=== PATIENT | female | born 1945 | race African-American/Black ===

== ENCOUNTER 2016-09-25 11:24 | Emergency (ER) | payer MEDICARE, OTHER ==
[2016-09-25 11:29] VITALS: BP 137/83
--- NOTE | 2016-09-25 11:40 | ER Document Report ---
ED Medical Screen (RME) - General Stated Complaint: LEFT KNEE PAIN Mode of Arrival: Ambulatory Information source: Patient Notes: Patient complains of pain to left knee for the past 2 months. Patient states she was walking and felt a pop in her knee. Patient complains of increased pain since then. I have greeted and performed a rapid initial assessment of this patient. A comprehensive ED assessment and evaluation of the patient, analysis of test results and completion of the medical decision making process will be conducted by additional ED providers. TRAVEL OUTSIDE OF THE [place] IN LAST 30 DAYS: No - Related Data Allergies/Adverse Reactions: Sulfa (Sulfonamide Antibiotics) Allergy (Verified 09/25/16 11:38) Past Medical History - Past Medical History Cardiac Medical History: Reports: Hx Hypertension Pulmonary Medical History: Reports: Hx Asthma, Hx Bronchitis, Hx Pneumonia GI Medical History: Reports: Hx Diverticulitis, Hx Gastroesophageal Reflux Disease Past Surgical History: Reports: Hx Breast Surgery - tumor removed, Hx Cholecystectomy, Hx Hysterectomy, Hx Orthopedic Surgery - left wrist, right shoulder, Hx Tonsillectomy - Immunizations Hx Diphtheria, Pertussis, Tetanus Vaccination: Yes Physical Exam - Vital signs Vitals: Temp Pulse Resp BP Pulse Ox 98.0 F 81 18 137/83 H 96 09/25/16 11:28 09/25/16 11:28 09/25/16 11:28 09/25/16 11:28 09/25/16 11:28 - Extremities General lower extremity: Tender - Left knee Course - Vital Signs Vital signs: Temp Pulse Resp BP Pulse Ox 98.0 F 81 18 137/83 H 96 09/25/16 11:28 09/25/16 11:28 09/25/16 11:28 09/25/16 11:28 09/25/16 11:28
--- NOTE | 2016-09-25 12:28 | ER Document Report ---
HPI - HPI Patient complains to provider of: knee pain Onset: This morning Quality of pain: Achy Severity: Moderate Pain Level: 3 Context: Patient presents to the emergency department with complaints of left knee pain. She reports she's had knee pain for a while. Her doctor, Dr. Garcia sent her for an ultrasound last week. She is still waiting on the results. Patient reports this morning she came out of the bathroom stepped felt a pop and then a sharp burn. Since that time it's been burning. She has not taken anything for pain. 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 Patient walking with a limp. Denies prior past medical history of trauma to the knee. No other complaints such as fever vomiting diarrhea. Associated Symptoms: None Exacerbated by: Movement, Walking Relieved by: Denies Similar symptoms previously: Yes Recently seen / treated by doctor: Yes - CONSTITUTIONAL Constitutional: DENIES: Fever, Chills - REPRODUCTIVE Reproductive: DENIES: : - DERM Skin Color: Normal Skin Problems: None - NURSING COMMENTS Comment: Pt presents to the ED with left knee pain. Pt claims she was walking this morning and "felt a pop" and wanted to seek medical attention. Pt denies any trip, slip or any other previous injury. Pt claims a history of "burning" to the left knee and has a scheduled doppler. Pt is AOx4 and able to speak in full sentences. Pt is able to bear weight but with pain. Pt denies any SOB or difficulty breathing at this time. Past Medical History - General Information source: Patient Last Menstrual Period: hysterectomy - Social History Smoking Status: Never Smoker Cigarette use (# per day): No Chew tobacco use (# tins/day): No Frequency of alcohol use: Social Drug Abuse: None Family History: Arthritis, CAD, DM, Hyperlipidemia, Hypertension Patient has suicidal ideation: No Patient has homicidal ideation: No - Past Medical History Cardiac Medical History: Reports: Hx Hypertension Pulmonary Medical History: Reports: Hx Asthma, Hx Bronchitis, Hx Pneumonia Renal/ Medical History: Denies: Hx Peritoneal Dialysis GI Medical History: Reports: Hx Diverticulitis, Hx Gastroesophageal Reflux Disease Past Surgical History: Reports: Hx Breast Surgery - tumor removed, Hx Cholecystectomy, Hx Hysterectomy, Hx Orthopedic Surgery - left wrist, right shoulder, Hx Tonsillectomy - Immunizations Hx Diphtheria, Pertussis, Tetanus Vaccination: Yes Vertical Provider Document - CONSTITUTIONAL Agree With Documented VS: Yes Exam Limitations: No Limitations General Appearance: WD/WN - INFECTION CONTROL TRAVEL OUTSIDE OF THE [place] IN LAST 30 DAYS: No - HEENT HEENT: Atraumatic, Normocephalic - NECK Neck: Normal Inspection, Supple - RESPIRATORY Respiratory: Breath Sounds Normal, No Respiratory Distress O2 Sat by Pulse Oximetry: 96 - CARDIOVASCULAR Cardiovascular: Regular Rate - MUSCULOSKELETAL/EXTREMETIES Musculoskeletal/Extremeties: MAEW, FROM, Tender - Left knee anterior tender to palpation no obvious deformity no swelling no erythema noted around patient walks with a limp. - NEURO Level of Consciousness: Awake, Alert, Appropriate Motor/Sensory: No Motor Deficit - DERM Integumentary: Warm, Dry Adult Front & Back Diagram: 1 - Complaints of pain Course - Re-evaluation Re-evalutation: 09/25/16 12:48 Patient was walking with a slight limp. Do not suspect fracture because patient did not fall on her knee. She has been evaluated for this pain in the past. Patient will be provided with a copy of the x-ray report, norco for pain for which patient says she's had before and instructed to follow up with Dr. Lynne and orthopedics. - Vital Signs Vital signs: Temp Pulse Resp BP Pulse Ox 98.0 F 81 18 137/83 H 96 09/25/16 11:28 09/25/16 11:28 09/25/16 11:28 09/25/16 11:28 09/25/16 11:28 - Diagnostic Test Radiology reviewed: Image reviewed, Reports reviewed - IMPRESSION: Suspect an accessory ossification center along the upper outer quadrant of the patella. Acute fracture is considered possible but unlikely Discharge - Discharge Clinical Impression: Elevated blood pressure reading Left knee pain Qualifiers: Chronicity: acute Qualified Code(s): M25.562 - Pain in left knee Condition: Stable Disposition: HOME, SELF-CARE Instructions: Ice & Elevation ([facility]), Oral Narcotic Medication ([facility]) Additional Instructions: *You have been evaluated for knee pain *Rest/Ice/Elevate *Follow up with Dr Lynne as scheduled and for referral to orthopedics *Take medication as prescribed *Return to ED for worsening condition, changes, needs Prescriptions: Hydrocodone/Acetaminophen [Wallagrass 5-325 Tablet] 1 each PO QID #15 tablet Forms: Elevated Blood Pressure
[2016-09-25] MEDS ORDERED: IBUPROFEN 800 MG TABLET PO ONE (12:43)
== END 2016-09-25 13:23 | disposition home or self-care (01) ==
LOC: ER 11:24
DX: M25.562 Pain in left knee (principal); I10 Essential (primary) hypertension; J45.909 Unspecified asthma, uncomplicated
CPT/HCPCS: 99283; 73562; A9270

== ENCOUNTER 2017-04-16 14:52 | Emergency (ER) | payer MEDICARE, OTHER ==
[2017-04-16 15:05] VITALS: BP 148/80
[2017-04-16 17:27] LABS: APPEARANCE,URINE CLEAR; BILIRUBIN,URINE NEGATIVE (NEGATIVE); GLUCOSE, URINE NEGATIVE (NEGATIVE); KETONES,URINE NEGATIVE (NEGATIVE); LEUKOCYTE ESTERASE,URINE NEGATIVE (NEGATIVE); NITRITE,URINE NEGATIVE (NEGATIVE); PROTEIN,URINE NEGATIVE (NEGATIVE); URINE SPECIFIC GRAVITY 1.008; UROBILINOGEN,URINE NEGATIVE mg/dL (<2.0)
[2017-04-16 17:28] LABS: ABSOLUTE EOSINOPHILS # (AUTO) 0.3 10^3/uL (0.0-0.6); ABSOLUTE LYMPHOCYTES (AUTO) 1.8 10^3/uL (0.5-4.7); ABSOLUTE MONOCYTES (AUTO) 0.4 10^3/uL (0.1-1.4); ABSOLUTE NEUT (AUTO) 3.3 10^3/uL (1.7-8.2); BASOPHILS % (AUTO) 0.4 % (0-2); EOSINOPHILS % (AUTO) 5.8 % (0-6); HEMATOCRIT 37.6 % (36.0-47.0); HEMOGLOBIN 11.9 g/dL (12.0-15.5); HGB HCT DIFFERENCE -1.9; LYMPHOCYTES % (AUTO) 30.9 % (13-45); MEAN CORPUSCULAR HEMOGLOBIN 20.8 pg (27.0-33.4); MEAN CORPUSCULAR HGB CONC 31.5 g/dL (32.0-36.0); MEAN CORPUSCULAR VOLUME 66 fl (80-97); MONOCYTES % (AUTO) 7.1 % (3-13); RED BLOOD COUNT 5.69 10^6/uL (3.72-5.28); RED CELL DISTRIBUTION WIDTH 15.8 % (11.5-14.0); SEGMENTED NEUTROPHILS % (AUTO) 55.8 % (42-78); WHITE BLOOD COUNT 5.9 10^3/uL (4.0-10.5)
[2017-04-16 17:46] LABS: ALANINE AMINOTRANSFERASE 41 U/L (9-52); ALKALINE PHOSPHATASE 114 U/L (38-126); ANION GAP 9 (5-19); ASPARTATE AMINO TRANSFERASE 32 U/L (14-36); BILIRUBIN,DIRECT 0.3 mg/dL (0.0-0.4); BILIRUBIN,TOTAL 0.6 mg/dL (0.2-1.3); BLOOD UREA NITROGEN 19 mg/dL (7-20); CALCIUM 10.2 mg/dL (8.4-10.2); CARBON DIOXIDE 33 mmol/L (22-30); CHLORIDE 98 mmol/L (98-107); CREATININE RESULT 0.91 mg/dL (0.52-1.25); GLUCOSE 101 mg/dL (75-110); POTASSIUM 3.4 mmol/L (3.6-5.0); SODIUM 140.2 mmol/L (137-145); TOTAL PROTEIN 6.7 g/dL (6.3-8.2)
[2017-04-16] MEDS ORDERED: KETOROLAC TROMETHAMINE INJ/PF 30 MG/1 ML SDV IM ONE (18:44)
[2017-04-16] MEDS ORDERED: CYCLOBENZAPRINE HCL 10 MG TABLET PO ONE (18:44)
--- NOTE | 2017-04-16 18:44 | ER Document Report ---
ED Neck/Back Problem - General Chief Complaint: Flank Pain Stated Complaint: BACK PAIN Time Seen by Provider: 04/16/17 17:05 TRAVEL OUTSIDE OF THE [place] IN LAST 30 DAYS: No - HPI Patient complains to provider of: Lower back Onset: Just prior to arrival Where: Home Onset: Sudden Timing: Constant Quality of pain: Achy Severity: Moderate Context: Bending. denies: Fainted, Fall/near-fall, Turning Recent injury: Possibly Associated symptoms: None Exacerbated by: Movement of trunk Relieved by: Supine, Remaining still Similar symptoms previously: Yes - h/o acute back pain responded well to muscle relaxers. Recently seen / treated by doctor: No - Related Data Allergies/Adverse Reactions: Sulfa (Sulfonamide Antibiotics) Allergy (Verified 04/16/17 15:05) Past Medical History - Social History Smoking Status: Unknown if Ever Smoked Family History: Arthritis, CAD, DM, Hyperlipidemia, Hypertension - Past Medical History Cardiac Medical History: Reports: Hx Hypertension Pulmonary Medical History: Reports: Hx Asthma, Hx Bronchitis, Hx Pneumonia Renal/ Medical History: Denies: Hx Peritoneal Dialysis GI Medical History: Reports: Hx Diverticulitis, Hx Gastroesophageal Reflux Disease Past Surgical History: Reports: Hx Breast Surgery - tumor removed, Hx Cholecystectomy, Hx Hysterectomy, Hx Orthopedic Surgery - left wrist, right shoulder, Hx Tonsillectomy - Immunizations Hx Diphtheria, Pertussis, Tetanus Vaccination: Yes Review of Systems - Review of Systems Constitutional: No symptoms reported Musculoskeletal: See HPI Neurological/Psychological: See HPI -: Yes All other systems reviewed and negative Physical Exam - Vital signs Vitals: Temp Pulse Resp BP Pulse Ox 98.1 F 81 16 148/80 H 97 04/16/17 15:02 04/16/17 15:02 04/16/17 15:02 04/16/17 15:02 04/16/17 15:02 - Notes Notes: PHYSICAL EXAM GENERAL: Alert, interacts well. HEAD: Normocephalic, atraumatic. EYES: Pupils equal, round, and reactive to light. Extraocular movements intact. ENT: Oral mucosa moist, tongue midline. NECK: Full range of motion. Supple. Trachea midline. LUNGS: Clear to auscultation bilaterally, no wheezes, rales, or rhonchi. No respiratory distress. HEART: Regular rate and rhythm. No murmurs, gallops, or rubs. ABDOMEN: Soft, nondistended, nontender. No guarding, rebound, or rigidity.. Bowel sounds present in all 4 quadrants. EXTREMITIES: Moves all 4 extremities spontaneously. No edema, radial and dorsalis pedis pulses 2/4 bilaterally. No cyanosis. Back: Superficial paralumbar muscular tenderness in the right lumbar spine negative for CVA tenderness bilaterally. No evidence of spinous process tenderness, deformities or step-offs NEUROLOGICAL: Alert and oriented x4. Normal speech. PSYCH: Normal affect, normal mood. SKIN: Warm, dry, normal turgor. No rashes or lesions noted. Course - Re-evaluation Re-evalutation: 04/16/17 18:43 The patient presents with low back pain without signs of spinal cord compression , cauda equina syndrome, infection, aneurysm, or other serious etiology. The patient is neurologically intact. Given the extremely low risk of these diagnoses further testing and evaluation for these possibilities does not appear to be indicated at this time. The patient has been instructed to return if the symptoms worsen or change in any way. - Vital Signs Vital signs: Temp Pulse Resp BP Pulse Ox 98.1 F 81 16 148/80 H 97 04/16/17 15:02 04/16/17 15:02 04/16/17 15:02 04/16/17 15:02 04/16/17 15:02 - Laboratory Result Diagrams: 04/16/17 17:16 04/16/17 17:16 Laboratory results interpreted by me: 04/16/17 04/16/17 17:16 17:16 RBC 5.69 H Hgb 11.9 L MCV 66 L MCH 20.8 L MCHC 31.5 L RDW 15.8 H Potassium 3.4 L Carbon Dioxide 33 H Discharge - Discharge Clinical Impression: Low back pain Qualifiers: Chronicity: acute Back pain laterality: right Sciatica presence: without sciatica Qualified Code(s): M54.5 - Low back pain Condition: Good Disposition: HOME, SELF-CARE Additional Instructions: LOW BACK PAIN: Three out of every four people will have an episode of disabling back pain during their lifetime. Most commonly the pain is due to straining of the muscles and ligaments in the low back. Usual treatment includes: (1) Rest on a firm surface. Avoid lying on your stomach. (2) Ice pack the painful area. After a few days, gentle heat may be used intermittently to relax the area, or ice packs can be continued. (3) Medication may be needed -- muscle relaxers and antiinflammatory medicines are commonly used. (4) As the back improves, exercises are prescribed to strengthen the back and abdominal muscles. Your doctor will advise you on the proper care for your back at each stage in your recovery. You may be better in a few days -- or healing may take several weeks. If new symptoms of a "herniated disc" (radiation of pain, numbness, or tingling down the back of the leg or weakness in the leg) occur, you should be re-examined. Further testing may be necessary. PAIN MEDICATION INJECTION: You have received an injection of a pain medication. You should experience significant pain relief within 45 minutes. If this injection was a narcotic -- it will impair your judgement, slow your reaction time and make you sleepy (as well as relieve your pain). Narcotics also can cause nausea. You should not drive, work with machinery, or perform any task requiring mental alertness until all effects of the medication are gone -- six to eight hours. Do not take any alcohol, or sedatives, and do not take any other medication without checking with your physician. MUSCLE RELAXERS: Muscle relaxing medications are usually prescribed for acute muscle spasm or injury to the neck and back. They are often combined with antiinflammatory pain medication for increased relief. You may stop the muscle relaxer when the pain and stiffness have improved. Start the medication again if spasms recur. Muscle relaxers may cause drowsiness, especially with the first dose. Do not operate machinery or drive while under the effects of the medication. Most muscle relaxers last up to 24 hours. Do not combine the medication with alcohol. ICE PACKS: Apply ice packs frequently against the painful area. Many different schedules are recommended, such as "20 minutes on, 20 minutes off" or "one hour ice, two hours rest." If you need to work, you may need to go longer between ice treatments. You should plan to have the area ice packed AT LEAST one fourth of the time. The ice should be applied over the wrap, tape, or splint, or over a layer of cloth -- not directly against the skin. Some ice bags have a built-in cloth and can be put directly on the skin. WARM PACKS: After approximately two days, apply gentle heat (such as a heating pad or hot water bottle) for about 20 to 30 minutes about every two hours -- at least four times daily. Warmth and elevation will help you make a more rapid recovery , and will ease the pain considerably. Do not use HOT heat, and never apply heat for longer than 30 minutes. The continuous heat can invisibly damage skin and muscles -- even when no burn is seen on the surface. Damaged muscles can make you MORE sore. FOLLOW-UP CARE: If you have been referred to a physician for follow-up care, call the physician s office for an appointment as you were instructed or within the next two days. If you experience worsening or a significant change in your symptoms, notify the physician immediately or return to the Emergency Department at any time for re-evaluation. Prescriptions: Cyclobenzaprine HCl [Flexeril 5 mg Tablet] 5 mg PO BID #14 tablet Ibuprofen [Motrin 800 mg Tablet] 800 mg PO Q8H PRN #30 tab PRN Reason: Referrals: MAICOL RYAN MD [NO LOCAL MD] - Follow up in 1 week
== END 2017-04-16 19:25 | disposition home or self-care (01) ==
LOC: ER 14:52
DX: R10.9 Unspecified abdominal pain (principal); M54.5 Low back pain; I10 Essential (primary) hypertension; Z88.2 Allergy status to sulfonamides; Z90.49 Acquired absence of other specified parts of digestive tract; Z90.710 Acquired absence of both cervix and uterus
CPT/HCPCS: 99284; 96372; 36415; 85025; 80053; 81001; A9270; J1885

== ENCOUNTER 2017-09-09 13:07 | Emergency (ER) | payer MEDICARE, OTHER ==
[2017-09-09 13:21] VITALS: BP 143/71
--- NOTE | 2017-09-09 14:44 | ER Document Report ---
HPI - HPI Patient complains to provider of: right jaw swelling Onset: This afternoon - 12:00 while eating Onset/Duration: Sudden Pain Level: 4 Context: 72 yo female developed right jaw swelling while eating at 12:00, it has now subsided. No tooth pain. No fever. Associated Symptoms: None Exacerbated by: Denies Relieved by: Denies Similar symptoms previously: No Recently seen / treated by doctor: No - ROS ROS below otherwise negative: Yes Systems Reviewed and Negative: Yes All other systems reviewed and negative - REPRODUCTIVE Reproductive: DENIES: : Past Medical History - General Information source: Patient - Social History Smoking Status: Never Smoker Chew tobacco use (# tins/day): No Frequency of alcohol use: Occasional Drug Abuse: None Lives with: Family Family History: Arthritis, CAD, DM, Hyperlipidemia, Hypertension Patient has suicidal ideation: No Patient has homicidal ideation: No - Past Medical History Cardiac Medical History: Reports: Hx Hypertension Pulmonary Medical History: Reports: Hx Asthma, Hx Bronchitis, Hx Pneumonia Renal/ Medical History: Denies: Hx Peritoneal Dialysis GI Medical History: Reports: Hx Diverticulitis, Hx Gastroesophageal Reflux Disease Past Surgical History: Reports: Hx Breast Surgery - tumor removed, Hx Cholecystectomy, Hx Hysterectomy, Hx Orthopedic Surgery - left wrist, right shoulder, Hx Tonsillectomy - Immunizations Hx Diphtheria, Pertussis, Tetanus Vaccination: Yes Vertical Provider Document - CONSTITUTIONAL Agree With Documented VS: Yes Exam Limitations: No Limitations General Appearance: No Apparent Distress - INFECTION CONTROL TRAVEL OUTSIDE OF THE [place] IN LAST 30 DAYS: No - HEENT HEENT: Normal ENT Exam Notes: location that she had swelling was the right parotid gland which is normal at this time per the pt, she looked in the mirror. Gingiva and buccal mucosa normal. - NECK Neck: Supple. negative: Lymphadenopathy-Left, Lymphadenopathy-Right - RESPIRATORY O2 Sat by Pulse Oximetry: 96 - NEURO Level of Consciousness: Awake, Alert, Appropriate - DERM Integumentary: Warm, Dry Course - Vital Signs Vital signs: Temp Pulse Resp BP Pulse Ox 98.6 F 76 16 143/71 H 96 09/09/17 13:19 09/09/17 13:19 09/09/17 13:19 09/09/17 13:19 09/09/17 13:19 Discharge - Discharge Clinical Impression: Transient swelling of the right parotid Condition: Good Disposition: HOME, SELF-CARE Instructions: Acute Parotid Gland Swelling ([facility]), Warm Packs ([facility]) Additional Instructions: warm compess and gentle massage if recurs sucking on lemon drop with help promote saliva gland drainage see dr. ryan for follow up to er if it swells, gets, hot, painful Referrals: MAICOL RYAN MD [Primary Care Provider] - Follow up as needed
== END 2017-09-09 14:47 | disposition home or self-care (01) ==
LOC: ER 13:07
DX: R59.0 Localized enlarged lymph nodes (principal); I10 Essential (primary) hypertension; Z90.49 Acquired absence of other specified parts of digestive tract; Z90.710 Acquired absence of both cervix and uterus
CPT/HCPCS: 99283

== ENCOUNTER 2017-11-10 16:19 | Emergency (ER) | payer MEDICARE, OTHER ==
--- NOTE | 2017-11-10 16:53 | ER Document Report ---
ED Extremity Problem, Lower - General Chief Complaint: Knee Pain Stated Complaint: KNEE PAIN/SWELLING Time Seen by Provider: 11/10/17 16:52 Mode of Arrival: Ambulatory Information source: Patient Notes: 72 yo non diabetic female noticed a red area that itched on medial right knee on saturday, the red area has gotten larger and now hurts. No fever or chills. TRAVEL OUTSIDE OF THE [place] IN LAST 30 DAYS: No - Related Data Allergies/Adverse Reactions: Sulfa (Sulfonamide Antibiotics) Allergy (Verified 11/10/17 16:24) Past Medical History - General Information source: Patient - Social History Smoking Status: Never Smoker Frequency of alcohol use: None Drug Abuse: None Lives with: Family Family History: Arthritis, CAD, DM, Hyperlipidemia, Hypertension - Past Medical History Cardiac Medical History: Reports: Hx Hypertension Pulmonary Medical History: Reports: Hx Asthma, Hx Bronchitis, Hx Pneumonia Renal/ Medical History: Denies: Hx Peritoneal Dialysis GI Medical History: Reports: Hx Diverticulitis, Hx Gastroesophageal Reflux Disease Past Surgical History: Reports: Hx Breast Surgery - tumor removed, Hx Cholecystectomy, Hx Hysterectomy, Hx Orthopedic Surgery - left wrist, right shoulder, Hx Tonsillectomy - Immunizations Hx Diphtheria, Pertussis, Tetanus Vaccination: Yes Review of Systems - Review of Systems Constitutional: No symptoms reported EENT: No symptoms reported Cardiovascular: No symptoms reported Respiratory: No symptoms reported Gastrointestinal: No symptoms reported Genitourinary: No symptoms reported Female Genitourinary: No symptoms reported Musculoskeletal: See HPI Skin: No symptoms reported Hematologic/Lymphatic: No symptoms reported Neurological/Psychological: No symptoms reported Physical Exam - Vital signs Vitals: Temp Pulse Resp BP Pulse Ox 98.3 F 84 16 132/73 H 95 11/10/17 16:33 11/10/17 16:33 11/10/17 16:33 11/10/17 16:33 11/10/17 16:33 Interpretation: Normal - General General appearance: Appears well, Alert - HEENT Head: Normocephalic, Atraumatic Eyes: Normal Pupils: PERRL Pharynx: Normal Neck: Supple - Respiratory Respiratory status: No respiratory distress Chest status: Nontender Breath sounds: Normal Chest palpation: Normal - Cardiovascular Rhythm: Regular Heart sounds: Normal auscultation Murmur: No - Back Back: Normal, Nontender - Extremities General upper extremity: Normal inspection, Nontender, Normal color, Normal ROM , Normal temperature General lower extremity: Normal inspection, Nontender, Normal color, Normal ROM , Normal temperature, Normal weight bearing. No: Harpreet's sign Knee: Tender - mild medial right knee, distal medial thigh 2 cm , no abscess, surrounding pink non tender, non circumferential 20 cm, area marked with skin marker.. No: Joint effusion - Neurological Neuro grossly intact: Yes Cognition: Normal Orientation: AAOx4 [place] Coma Scale Eye Opening: Spontaneous Dez Coma Scale Verbal: Oriented Dez Coma Scale Motor: Obeys Commands [place] Coma Scale Total: 15 Speech: Normal Motor strength normal: LUE, RUE, LLE, RLE Sensory: Normal - Psychological Associated symptoms: Normal affect, Normal mood - Skin Skin Temperature: Warm Skin Moisture: Dry Skin Color: Normal Notes: se above Course - Vital Signs Vital signs: Temp Pulse Resp BP Pulse Ox 98.1 F 80 18 130/72 H 96 11/10/17 18:07 11/10/17 18:07 11/10/17 18:07 11/10/17 18:07 11/10/17 18:07 Discharge - Discharge Clinical Impression: right mid medial leg cellulitis Condition: Good Disposition: HOME, SELF-CARE Instructions: Cellulitis ([facility]), Clindamycin ([facility]), Elevation & Warmth ([facility]) Additional Instructions: recheck the leg tomorrow if the red area has gone outside the purple marking pen Elevate the leg and use heat Antibiotics 3 times a day If the redness is decreasing inside the purple marking pen then you can be rechecked on Saturday. Prescriptions: Clindamycin HCl [Cleocin 150 mg Capsule] 300 mg PO TID #42 capsule Referrals: MAICOL RYAN MD [Primary Care Provider] - Follow up tomorrow
[2017-11-10] MEDS ORDERED: ONDANSETRON 4 MG TAB.RAPDIS PO ONE (17:53)
[2017-11-10] MEDS ORDERED: CLINDAMYCIN HCL 150 MG CAPSULE PO ONE (17:53)
[2017-11-10 18:07] VITALS: BP 130/72
== END 2017-11-10 18:07 | disposition home or self-care (01) ==
LOC: ER 16:19
DX: L03.115 Cellulitis of right lower limb (principal); I10 Essential (primary) hypertension; J45.909 Unspecified asthma, uncomplicated; Z88.2 Allergy status to sulfonamides
CPT/HCPCS: 99283; A9270 ×2; S0119

== ENCOUNTER 2018-03-27 06:23 | Day surgery (SDC) | payer MEDICARE, OTHER ==
[2018-03-27] MEDS ORDERED: TETRACAINE HCL 0.5% OPH SOLN 2 ML ONE (06:38)
[2018-03-27] MEDS ORDERED: KETOROLAC TROMETHAMINE 0.45% 4 DROP/0.4 ML DROPERETTE ONE (06:38)
[2018-03-27] MEDS ORDERED: MIDAZOLAM 2 MG/2 ML INJ ONE (06:41)
[2018-03-27] MEDS: BESIFLOXACIN HCL 0.6% OPH SUSP 5 ML BOTTLE OS PRN ×3 (06:50→07:52)
[2018-03-27] MEDS: CYCLOPENTOLATE 0.2%/PHENYLEPHRINE 1% OPH SOLN 2 ML OS PRN ×3 (06:50→07:10)
[2018-03-27] MEDS: TROPICAMIDE 1% OPH SOLN 3 ML OS PRN ×3 (06:50→07:10)
[2018-03-27] MEDS: TETRACAINE HCL 0.5% OPH SOLN 2 ML OS PRN ×3 (06:51→07:31)
[2018-03-27] MEDS ORDERED: EPINEPHRINE INJ/PF 1 MG/1 ML AMPULE ONE (07:09)
[2018-03-27] MEDS ORDERED: CHONDR SU A NA/HYALUR INTRAOC KIT (SURGICARE) ONE (07:10)
[2018-03-27] MEDS ORDERED: LIDOCAINE 1% INJ-PF (10 MG/ML) 30 ML SDV ONE (07:10)
[2018-03-27] MEDS ORDERED: KETOROLAC TROMETHAMINE 0.45% 4 DROP/0.4 ML DROPERETTE OS PRN (07:20)
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
--- NOTE | 2018-03-27 19:46 | [facility] OPERATIVE REPORT E ---
[facility] Operative Report NAME: LINDSEY WILLIS AGE: 72Y DATE OF SURGERY: 03/27/2018 ROOM: PREOPERATIVE DIAGNOSIS: CATARACT, LEFT EYE. POSTOPERATIVE DIAGNOSIS: CATARACT, LEFT EYE. OPERATION: Cataract extraction with insertion of an IOL of the left eye. SURGEON: BRITNEY MÁRQUEZ M.D. ANESTHESIA: Topical. PROCEDURE: After obtaining appropriate consent, the patient's left eye was prepped and draped in sterile fashion as well as the surgeon in a sterile manner and cataract surgery was started. First a paracentesis blade was used to make a side-port incision. Viscoelastic was used to inflate the anterior chamber. Next a 2.4 mm incision was made with a 2.4 mm blade, clear corneal temporally. A continuous capsulorrhexis was made using a cystotome and Utrata forceps. Following this hydrodissection was carried out to make the lens fully loose and mobile and it was rotated 90 degrees. Following this, a lvxbzx-nkh-lxselga technique was used to phacoemulsify the lens with a CDE of 8.97. The remaining cortex was removed with irrigation/aspiration. Provisc was instilled into the capsular bag to inflate the bag. A SN60WF, 21.5 diopter lens was placed. The remaining viscoelastic material was removed with irrigation/aspiration. Following this, the incision was found to be watertight. Besivance was instilled into the eye and a protective shield was placed over the eye. The patient returned to the postoperative recovery in stable condition. DICTATING PHYSICIAN: BRITNEY MÁRQUEZ M.D. [id number] PHY#: [id number] 1922 ID: [id number] JOB#: [id number] ACCT: [id number] cc:BRITNEY MÁRQUEZ M.D. >
== END 2018-03-27 08:29 | disposition home or self-care (01) ==
LOC: SC 06:23
PROVIDERS: ATTEND Internal Medicine
DX: H25.12 Age-related nuclear cataract, left eye (principal); I10 Essential (primary) hypertension; E07.9 Disorder of thyroid, unspecified; J45.909 Unspecified asthma, uncomplicated; D64.9 Anemia, unspecified
CPT/HCPCS: 66984; V2632; J2250; J3490 ×2; A9270; J0171; 142

== ENCOUNTER 2018-04-29 06:46 | Day surgery (SDC) | payer MEDICARE, OTHER ==
[~2018-04-29 06:46] MED LIST: KETOROLAC TROMETHAMINE 0.45% 4 DROP/0.4 ML DROPERETTE OD PRN
[2018-04-29] MEDS: BESIFLOXACIN HCL 0.6% OPH SUSP 5 ML BOTTLE OD PRN ×3 (07:04→08:00)
[2018-04-29] MEDS: TETRACAINE HCL 0.5% OPH SOLN 4 ML OD PRN ×3 (07:04→07:34)
[2018-04-29] MEDS: TROPICAMIDE 1% OPH SOLN 3 ML OD PRN ×3 (07:04→07:16)
[2018-04-29] MEDS: CYCLOPENTOLATE 0.2%/PHENYLEPHRINE 1% OPH SOLN 2 ML OD PRN ×3 (07:04→07:16)
[2018-04-29] MEDS ORDERED: CHONDR SU A NA/HYALUR INTRAOC KIT (SURGICARE) ONE (07:11)
[2018-04-29] MEDS ORDERED: EPINEPHRINE INJ/PF 1 MG/1 ML AMPULE ONE (07:11)
[2018-04-29] MEDS ORDERED: LIDOCAINE 1% INJ-PF (10 MG/ML) 30 ML SDV ONE (07:11)
[2018-04-29] MEDS ORDERED: MIDAZOLAM 2 MG/2 ML INJ ONE (07:28)
[2018-04-29] MEDS ORDERED: FENTANYL CITRATE INJ/PF 100 MCG/2 ML AMPUL ONE (07:28)
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
--- NOTE | 2018-04-29 13:26 | [facility] OPERATIVE REPORT E ---
[facility] Operative Report NAME: LINDSEY WILLIS AGE: 73Y DATE OF SURGERY: 04/29/2018 ROOM: PREOPERATIVE DIAGNOSIS: CATARACT, RIGHT EYE. POSTOPERATIVE DIAGNOSIS: CATARACT, RIGHT EYE. OPERATION: Cataract extraction with insertion of an IOL of the right eye. SURGEON: BRITNEY MÁRQUEZ M.D. ANESTHESIA: Topical. PROCEDURE: After obtaining appropriate consent, the patient's right eye was prepped and draped in sterile fashion as well as the surgeon in a sterile manner and cataract surgery was started. First a paracentesis blade was used to make a side-port incision. Viscoelastic was used to inflate the anterior chamber. Next a 2.4 mm incision was made with a 2.4 mm blade, clear corneal temporally. A continuous capsulorrhexis was made using a cystotome and Utrata forceps. Following this hydrodissection was carried out to make the lens fully loose and mobile and it was rotated 90 degrees. Following this, a inbaun-sto-uorfacd technique was used to phacoemulsify the lens with a CDE of 5.63. The remaining cortex was removed with irrigation/aspiration. Provisc was instilled into the capsular bag to inflate the bag. A SN60WF, 21.0 diopter lens was placed. The remaining viscoelastic material was removed with irrigation/aspiration. Following this, the incision was found to be watertight. Besivance was instilled into the eye and a protective shield was placed over the eye. The patient returned to the postoperative recovery in stable condition. DICTATING PHYSICIAN: BRITNEY MÁRQUEZ M.D. [id number] PHY#: [id number] ID: [id number] JOB#: [id number] ACCT: [id number] cc:BRITNEY MÁRQUEZ M.D. >
== END 2018-04-29 08:33 | disposition home or self-care (01) ==
LOC: SC 06:46
PROVIDERS: ATTEND Internal Medicine
DX: H25.13 Age-related nuclear cataract, bilateral (principal); H04.123 Dry eye syndrome of bilateral lacrimal glands; H43.813 Vitreous degeneration, bilateral; I10 Essential (primary) hypertension; J45.909 Unspecified asthma, uncomplicated; M19.90 Unspecified osteoarthritis, unspecified site; E03.9 Hypothyroidism, unspecified; K76.0 Fatty (change of) liver, not elsewhere classified; D69.49 Other primary thrombocytopenia; G47.30 Sleep apnea, unspecified; D64.9 Anemia, unspecified; K21.9 Gastro-esophageal reflux disease without esophagitis; Z79.899 Other long term (current) drug therapy; Z79.82 Long term (current) use of aspirin; Z79.51 Long term (current) use of inhaled steroids; Z79.1 Long term (current) use of non-steroidal anti-inflammatories (NSAID); Z88.2 Allergy status to sulfonamides
CPT/HCPCS: 66984; V2632; J2250; J3490 ×3; A9270; J0171; J3010; 142

== ENCOUNTER 2018-07-16 08:21 | Emergency (ER) | payer MEDICARE, OTHER ==
--- NOTE | 2018-07-16 09:39 | ER Document Report ---
ED Respiratory Problem - General Chief Complaint: Cough Stated Complaint: COUGH Time Seen by Provider: 07/16/18 09:07 Mode of Arrival: Ambulatory Information source: Patient Notes: 73-year-old female presented to ED for cough cold congestion for 5 days. She is got postnasal drip she states she went to the urgent care was given Tessalon Perles which have not helped at all. She is also taking Coricidin HB. Patient is alert and oriented respirations regular and unlabored speaking in full sentences walking with a even steady gait. Patient is afebrile at this time pulse ox of 96 pulse of 92 respirations 20 and blood pressure of 157/74. TRAVEL OUTSIDE OF THE [place] IN LAST 30 DAYS: No - HPI Patient complains to provider of: Cough Onset: Last week Duration: Continuous Initiating Event: Other Quality of pain: Achy Pain Level: 3 Context: Hx asthma. denies: Smoker Cough: Nonproductive Sputum amount: None Associated symptoms: Congestion, Cough, PND, Runny nose, Sinus pain/pressure Similar symptoms previously: Yes Recently seen / treated by doctor: Yes - Related Data Allergies/Adverse Reactions: Sulfa (Sulfonamide Antibiotics) Allergy (Intermediate, Verified 04/29/18 07:04) palpitations Past Medical History - General Information source: Patient - Social History Smoking Status: Never Smoker Cigarette use (# per day): No Chew tobacco use (# tins/day): No Smoking Education Provided: No Frequency of alcohol use: Social Drug Abuse: None Lives with: Family Family History: Arthritis, CAD, DM, Hyperlipidemia, Hypertension Patient has suicidal ideation: No Patient has homicidal ideation: No - Past Medical History Cardiac Medical History: Reports: Hx Hypertension Pulmonary Medical History: Reports: Hx Asthma, Hx Bronchitis, Hx Pneumonia EENT Medical History: Reports: None Neurological Medical History: Reports: None Endocrine Medical History: Reports: Hx Hypothyroidism Renal/ Medical History: Reports: None Malignancy Medical History: Reports: None GI Medical History: Reports: Hx Diverticulitis, Hx Gastroesophageal Reflux Disease, Hx Hiatal Hernia, Hx Colonoscopy, Hx Endoscopy Musculoskeletal Medical History: Reports Hx Arthritis, Reports Hx Musculoskeletal Deformity Skin Medical History: Reports None Psychiatric Medical History: Reports: None Traumatic Medical History: Reports: None Infectious Medical History: Reports: None Past Surgical History: Reports: Hx Adenoidectomy, Hx Breast Surgery - tumor removed, Hx Cholecystectomy, Hx Hysterectomy, Hx Orthopedic Surgery - right rotator cuff, Hx Tonsillectomy - Immunizations Immunizations up to date: Yes Hx Diphtheria, Pertussis, Tetanus Vaccination: Yes Review of Systems - Review of Systems Constitutional: Recent illness EENT: Nose congestion, Nose discharge, Sinus pressure, Sinus discharge Cardiovascular: No symptoms reported Respiratory: Cough Gastrointestinal: No symptoms reported Genitourinary: No symptoms reported Female Genitourinary: No symptoms reported Musculoskeletal: No symptoms reported Skin: No symptoms reported Hematologic/Lymphatic: No symptoms reported Neurological/Psychological: No symptoms reported -: Yes All other systems reviewed and negative Physical Exam - Vital signs Vitals: Temp Pulse Resp BP Pulse Ox 98.6 F 93 20 157/74 H 96 07/16/18 08:23 07/16/18 08:23 07/16/18 08:23 07/16/18 08:23 07/16/18 08:23 Interpretation: Normal - General General appearance: Appears well, Alert - HEENT Head: Normocephalic, Atraumatic Eyes: Normal Pupils: PERRL Ears: Normal External canal: Normal Tympanic membrane: Normal Sinus: Normal Nasal: Purulent discharge, Swelling Mouth/Lips: Normal Mucous membranes: Normal Pharynx: Erythema, Post nasal drainage. No: Exudate, Peritonsillar abscess, Tonsillar hypertrophy Neck: Normal - Respiratory Respiratory status: No respiratory distress Chest status: Nontender Breath sounds: Normal Chest palpation: Normal - Cardiovascular Rhythm: Regular Heart sounds: Normal auscultation Murmur: No - Abdominal Inspection: Normal Distension: No distension Bowel sounds: Normal Tenderness: Nontender Organomegaly: No organomegaly - Back Back: Normal, Nontender - Extremities General upper extremity: Normal inspection, Nontender, Normal color, Normal ROM , Normal temperature General lower extremity: Normal inspection, Nontender, Normal color, Normal ROM , Normal temperature, Normal weight bearing. No: Harpreet's sign - Neurological Neuro grossly intact: Yes Cognition: Normal Orientation: AAOx4 [place] Coma Scale Eye Opening: Spontaneous Dez Coma Scale Verbal: Oriented [place] Coma Scale Motor: Obeys Commands [place] Coma Scale Total: 15 Speech: Normal Motor strength normal: LUE, RUE, LLE, RLE Sensory: Normal - Psychological Associated symptoms: Normal affect, Normal mood - Skin Skin Temperature: Warm Skin Moisture: Dry Skin Color: Normal Course - Re-evaluation Re-evalutation: 07/16/18 10:37 X-ray shows right upper lobe infiltrate possible pneumonia. Patient is having cough and congestion. Will treat with azithromycin 500 mg day 1 and 250 the next 4 days. Patient to follow-up with her primary doctor within the next 3 days. Patient verbalized understanding and agreement with treatment plan. Patient agreed to increase her fluid intake and be sure she follows up with her doctor before she goes to [place]. - Vital Signs Vital signs: Temp Pulse Resp BP Pulse Ox 98.1 F 73 18 137/74 H 98 07/16/18 10:44 07/16/18 10:44 07/16/18 10:44 07/16/18 10:44 07/16/18 10:44 - Diagnostic Test Radiology reviewed: Image reviewed, Reports reviewed Discharge - Discharge Clinical Impression: Right upper lobe pneumonia Qualifiers: Pneumonia type: due to unspecified organism Qualified Code(s): J18.1 - Lobar pneumonia, unspecified organism Condition: Stable Disposition: HOME, SELF-CARE Additional Instructions: PNEUMONIA: Your examination indicates that you have pneumonia. This is an infection of the lung tissue, usually caused by bacteria or a virus. Symptoms include cough, fever, shaking chills, chest pain, shortness of breath, and coughing up bloody sputum. Treatment for bacterial pneumonia includes rest, antibiotics for 10 to 14 days, increasing your clear liquid intake, a cool mist humidifier at your bedside, and fever medication. Often, a repeat chest X-ray is performed in a few weeks--even if you feel better--to ascertain whether the infection has completely resolved and no underlying lung problem is present. You should call the physician if you develop persistent vomiting, high fever that does not respond to fever medication, increasing shortness of breath , confusion, or lethargy. Also, failure to improve within two to three days is an indication for re-examination. AZITHROMYCIN: Azithromycin (Zithromax) is a broad spectrum antibiotic in the same class as erythromycin. It can treat a variety of bacterial infections, but is most frequently used for respiratory infections. Azithromycin is extremely long-lasting. It accumulates in body tissues and continues to kill bacteria for many days. In order to improve absorption, Azithromycin should be taken at least one hour before or two hours after a meal. It does not have the same strong tendency to upset the stomach as erythromycin and is usually very well tolerated. Patients who have had a rash or other true allergic reactions to erythromycin should not take this medication. Call if you develop gastrointestinal distress, severe diarrhea, rash, hives, itching, or shortness of breath. USE OF ACETAMINOPHEN (Tylenol): Acetaminophen may be taken for pain relief or fever control. It's much safer than aspirin, offering a wider range of "safe" dosages. It is safe during . Some brand names are Tylenol, Panadol, Datril, Anacin 3, Tempra, and Liquiprin. Acetaminophen can be repeated every four hours. The following are maximum recommended dosages: WEIGHT Dose Drops Elixir Chewable( 80mg) (LBS.) drprs=droppers tsp=teaspoon 6 40 mg 0.4 ml (1/2) 6-11 80 mg 0.8 ml (full) tsp 1 tab 12-16 120 mg 1 1/2 drprs 3/4 tsp 1 1/2 tabs 17-23 160 mg 2 drprs 1 tsp 2 tabs 24-30 240 mg 3 drprs 1 1/2 tsp 3 tabs 30-35 320 mg 2 tsp 4 tabs 36-41 360 mg 2 1/4 tsp 4 1/2 tabs 42-47 400 mg 2 1/2 tsp 5 tabs 48-53 480 mg 3 tsp 6 tabs 54-59 520 mg 3 1/4 tsp 6 1/2 tabs 60-64 560 mg 3 1/2 tsp 7 tabs 65-70 600 mg 3 3/4 tsp 7 1/2 tabs 71-76 640 mg 4 tsp 8 tabs 77-82 720 mg 4 1/2 tsp 9 tabs 83-88 800 mg 5 tsp 10 tabs >89 pounds or adults 650 mg to 900 mg Acetaminophen can be repeated every four hours. Maximum dose not to exceed 4000 mg a day. These maximum recommended dosages are slightly higher than the dosages written on the product container, but these dosages are very safe and below the toxic dosage for acetaminophen. FOLLOW-UP CARE: If you have been referred to a physician for follow-up care, call the physician s office for an appointment as you were instructed or within the next two days. If you experience worsening or a significant change in your symptoms, notify the physician immediately or return to the Emergency Department at any time for re-evaluation. Prescriptions: Azithromycin [Zithromax 250 mg Tablet] 250 mg PO ASDIR PRN #6 tablet PRN Reason: Forms: Elevated Blood Pressure Referrals: MAICOL RYAN MD [Primary Care Provider] - Follow up in 3-5 days
--- NOTE | 2018-07-16 09:53 | RADIOLOGY REPORT (SQ) ---
EXAM DESCRIPTION: CHEST 2 VIEWS COMPLETED DATE/TIME: 07/16/2018 9:43 am REASON FOR STUDY: cough congestion COMPARISON: May 2016 EXAM PARAMETERS: NUMBER OF VIEWS: two views TECHNIQUE: Digital Frontal and Lateral radiographic views of the chest acquired. RADIATION DOSE: NA LIMITATIONS: none FINDINGS: LUNGS AND PLEURA: There is some ill-defined increased density projected in the right upper lung field laterally which could conceivably represent a focal infiltrate. Remaining lung jackson ar e clear. No pleural effusions are identified. No pneumothorax is seen. MEDIASTINUM AND HILAR STRUCTURES: No masses or contour abnormalities. HEART AND VASCULAR STRUCTURES: Heart normal size. No evidence for failure. BONES: No acute findings. HARDWARE: None in the chest. OTHER: No other significant finding. IMPRESSION: Ill-defined increased density projected in the right upper lung field laterally which co uld conceivably represent a focal infiltrate. Remaining lung jackson are clear. Other findings as no philip above TECHNICAL DOCUMENTATION: JOB ID: [id number] [employer]- All Rights Reserved Reading location - IP/workstation name: [email or web address]
[2018-07-16 10:55] VITALS: BP 137/74
== END 2018-07-16 10:55 | disposition home or self-care (01) ==
LOC: ER 08:21
DX: J18.1 Lobar pneumonia, unspecified organism (principal); R09.81 Nasal congestion; R05 Cough; R09.82 Postnasal drip; J45.909 Unspecified asthma, uncomplicated; I10 Essential (primary) hypertension
CPT/HCPCS: 71046; 99283

== ENCOUNTER 2018-07-31 07:50 | Emergency (ER) | payer MEDICARE, OTHER ==
[2018-07-31] MEDS ORDERED: LIDOCAINE 5% (700 MG) TRANSDERMAL ADH..PATCH TP ONE (08:26)
--- NOTE | 2018-07-31 09:06 | RADIOLOGY REPORT (SQ) ---
EXAM DESCRIPTION: L SPINE WHOLE COMPLETED DATE/TIME: 07/31/2018 8:50 am REASON FOR STUDY: BACK PAIN COMPARISON: 05/17/2016 NUMBER OF VIEWS: Five views including obliques. TECHNIQUE: AP, lateral, oblique, and sacral radiographic images acquired of the lumbar spine. LIMITATIONS: None. FINDINGS: MINERALIZATION: Normal. SEGMENTATION: Normal. No transitional anatomy. ALIGNMENT: Grade 1 spondylolisthesis L4-5. VERTEBRAE: Maintained height. No fracture or worrisome bone lesion. DISCS: Multilevel disc space narrowing with osteophytes. POSTERIOR ELEMENTS: Pedicles and facets are intact. No pars defect or posterior arch defects. Facet arthropathy is present. HARDWARE: None in the spine. PARASPINAL SOFT TISSUES: Normal. PELVIS: Intact as visualized. No fractures or worrisome bone lesions. SI joints intact. OTHER: No other significant finding. IMPRESSION: SPONDYLOSIS WITHOUT BONE LESION OR FRACTURE. TECHNICAL DOCUMENTATION: JOB ID: [id number] [employer]- All Rights Reserved Reading location - IP/workstation name: [email or web address]
--- NOTE | 2018-07-31 09:59 | ER Document Report ---
ED General - General Chief Complaint: Back Pain Stated Complaint: LOWER BACK PAIN Time Seen by Provider: 07/31/18 08:09 TRAVEL OUTSIDE OF THE [place] IN LAST 30 DAYS: No - HPI Patient complains to provider of: Back pain Notes: Patient coming in for approximately 4-day history of left paraspinal back pain. Patient states the pain dental the back of her leg. Patient denies any fever chills nausea vomiting diarrhea denies any numbness or tingling denies any bowel or bladder incontinence denies any saddle anesthesias - Related Data Allergies/Adverse Reactions: Sulfa (Sulfonamide Antibiotics) Allergy (Intermediate, Verified 07/31/18 07:53) palpitations Past Medical History - Social History Smoking Status: Never Smoker Family History: Arthritis, CAD, DM, Hyperlipidemia, Hypertension Patient has suicidal ideation: No Patient has homicidal ideation: No - Past Medical History Cardiac Medical History: Reports: Hx Hypertension Pulmonary Medical History: Reports: Hx Asthma, Hx Bronchitis, Hx Pneumonia Endocrine Medical History: Reports: Hx Hypothyroidism Renal/ Medical History: Denies: Hx Peritoneal Dialysis GI Medical History: Reports: Hx Diverticulitis, Hx Gastroesophageal Reflux Disease, Hx Hiatal Hernia, Hx Colonoscopy, Hx Endoscopy Musculoskeletal Medical History: Reports Hx Arthritis, Reports Hx Musculoskeletal Deformity Past Surgical History: Reports: Hx Adenoidectomy, Hx Breast Surgery - tumor removed, Hx Cholecystectomy, Hx Hysterectomy, Hx Orthopedic Surgery - right rotator cuff, Hx Tonsillectomy - Immunizations Immunizations up to date: Yes Hx Diphtheria, Pertussis, Tetanus Vaccination: Yes Review of Systems - Review of Systems Constitutional: No symptoms reported EENT: No symptoms reported Cardiovascular: No symptoms reported Respiratory: No symptoms reported Gastrointestinal: No symptoms reported Genitourinary: No symptoms reported Female Genitourinary: No symptoms reported Musculoskeletal: Back pain Skin: No symptoms reported Hematologic/Lymphatic: No symptoms reported Neurological/Psychological: No symptoms reported -: Yes All other systems reviewed and negative Physical Exam - Vital signs Vitals: Temp Pulse Resp BP Pulse Ox 97.8 F 78 16 146/81 H 94 07/31/18 07:56 07/31/18 07:56 07/31/18 07:56 07/31/18 07:56 07/31/18 07:56 Interpretation: Normal - General General appearance: Appears well, Alert - HEENT Head: Normocephalic, Atraumatic Eyes: Normal Pupils: PERRL - Respiratory Respiratory status: No respiratory distress Chest status: Nontender Breath sounds: Normal Chest palpation: Normal - Cardiovascular Rhythm: Regular Heart sounds: Normal auscultation Murmur: No - Abdominal Inspection: Normal Distension: No distension Bowel sounds: Normal Tenderness: Nontender Organomegaly: No organomegaly - Back Back: Normal, Tender - Left paraspinal tenderness - Extremities General upper extremity: Normal inspection, Nontender, Normal color, Normal ROM, Normal temperature General lower extremity: Normal inspection, Nontender, Normal color, Normal ROM, Normal temperature, Normal weight bearing. No: Harpreet's sign - Neurological Neuro grossly intact: Yes Cognition: Normal Orientation: AAOx4 [place] Coma Scale Eye Opening: Spontaneous [place] Coma Scale Verbal: Oriented Dez Coma Scale Motor: Obeys Commands [place] Coma Scale Total: 15 Speech: Normal Motor strength normal: LUE, RUE, LLE, RLE Sensory: Normal - Psychological Associated symptoms: Normal affect, Normal mood - Skin Skin Temperature: Warm Skin Moisture: Dry Skin Color: Normal Course - Re-evaluation Re-evalutation: 07/31/18 15:39 The patient presents with low back pain without signs of spinal cord compression, cauda equina syndrome, infection, aneurysm, or other serious etiology. The patient is neurologically intact. Given the extremely low risk of these diagnoses further testing and evaluation for these possibilities does not appear to be indicated at this time. The patient has been instructed to return if the symptoms worsen or change in any way. - Vital Signs Vital signs: Temp Pulse Resp BP Pulse Ox 98.3 F 71 14 135/76 H 98 07/31/18 10:06 07/31/18 10:06 07/31/18 10:06 07/31/18 10:06 07/31/18 10:06 Discharge - Discharge Clinical Impression: Left paraspinal back pain Condition: Good Disposition: HOME, SELF-CARE Instructions: Ice Packs ([facility]), Low Back Pain ([facility]), Muscle Strain ([facility]), Oral Narcotic Medication ([facility]), Warm Packs ([facility]) Additional Instructions: X-ray today does not show any acute pathology. I would recommend using warm packs ice packs Tylenol Motrin combination for the next 2-3 days for your back pain for severe pain would recommend the Ultram as prescribed. Follow-up with your primary care physician return to ER symptoms worsen. Prescriptions: Ibuprofen [Motrin 600 mg Tablet] 600 mg PO Q8HP PRN #10 tablet PRN Reason: Tramadol HCl [Ultram 50 mg Tablet] 50 mg PO ASDIR PRN #10 tablet PRN Reason: Referrals: MAICOL RYAN MD [Primary Care Provider] - Follow up in 3-5 days
[2018-07-31 10:07] VITALS: BP 135/76
== END 2018-07-31 10:29 | disposition home or self-care (01) ==
LOC: ER 07:50
DX: M54.5 Low back pain (principal); I10 Essential (primary) hypertension; J45.909 Unspecified asthma, uncomplicated; Z88.2 Allergy status to sulfonamides
CPT/HCPCS: 72110; 99283

== ENCOUNTER 2018-10-31 15:50 | Emergency (ER) | payer MEDICARE, OTHER ==
--- NOTE | 2018-10-31 18:44 | ER Document Report ---
ED Medical Screen (RME) - General Chief Complaint: Eye Pain Stated Complaint: LEFT EYE PAIN Time Seen by Provider: 10/31/18 18:38 Primary Care Provider: MAICOL RYAN MD [Primary Care Provider] - Follow up as needed TRAVEL OUTSIDE OF THE [place] IN LAST 30 DAYS: No - HPI Patient complains to provider of: L eye pain Onset: This morning - pt states L eye pain since this eye. No FB sensation.No d/c - Related Data Allergies/Adverse Reactions: Sulfa (Sulfonamide Antibiotics) Allergy (Intermediate, Verified 07/31/18 07:53) palpitations Past Medical History - Past Medical History Cardiac Medical History: Reports: Hx Hypertension Pulmonary Medical History: Reports: Hx Asthma, Hx Bronchitis, Hx Pneumonia Endocrine Medical History: Reports: Hx Hypothyroidism Renal/ Medical History: Denies: Hx Peritoneal Dialysis GI Medical History: Reports: Hx Diverticulitis, Hx Gastroesophageal Reflux Disease, Hx Hiatal Hernia, Hx Colonoscopy, Hx Endoscopy Musculoskeltal Medical History: Reports Hx Arthritis, Reports Hx Musculoskeletal Deformity Past Surgical History: Reports: Hx Adenoidectomy, Hx Breast Surgery - tumor removed, Hx Cholecystectomy, Hx Hysterectomy, Hx Orthopedic Surgery - right rotator cuff, Hx Tonsillectomy - Immunizations Immunizations up to date: Yes Hx Diphtheria, Pertussis, Tetanus Vaccination: Yes Physical Exam - Vital signs Vitals: Temp Pulse Resp BP Pulse Ox 98.6 F 103 H 18 151/70 H 95 10/31/18 16:13 10/31/18 16:13 10/31/18 16:13 10/31/18 16:13 10/31/18 16:13 Course - Vital Signs Vital signs: Temp Pulse Resp BP Pulse Ox 98.6 F 103 H 18 151/70 H 95 10/31/18 16:13 10/31/18 16:13 10/31/18 16:13 10/31/18 16:13 10/31/18 16:13 Doctor's Discharge - Discharge Referrals: MAICOL RYAN MD [Primary Care Provider] - Follow up as needed
[2018-10-31] MEDS ORDERED: METHYLPREDNISOLONE INJ 1000 MG VIAL IV ONE (20:09)
[2018-10-31] MEDS ORDERED: PREDNISONE 20 MG TABLET PO ONE (20:15)
--- NOTE | 2018-10-31 20:21 | ER Document Report ---
ED General - General Chief Complaint: Eye Pain Stated Complaint: LEFT EYE PAIN Time Seen by Provider: 10/31/18 18:38 Primary Care Provider: TERESA SWANSON DO [ACTIVE STAFF] - Follow up tomorrow MAICOL RYAN MD [Primary Care Provider] - Follow up as needed TRAVEL OUTSIDE OF THE [place] IN LAST 30 DAYS: No - HPI Notes: Patient is a 73-year-old -Japanese female with a history of hypertension, glaucoma, hyperglyceridemia who presents to the emergency department complaining of left eye redness and pain that began at 0300 with no known precipitating event. Patient states that she does have a headache on the lateral orbital/temporal area and does not radiate. This is not the worst headache of her life. Patient states that she does not have any floaters in her vision, but is not seeing as clearly. She was diagnosed with an upper respiratory infection 4 days ago and was started on steroids as well as Zithromax. She is currently on a lower dose steroid at this time due to taper dose. She does wear reading glasses, but does not wear contact lenses. She has not noticed any discharge from her eye or lid/orbital swelling. She otherwise is eating and drinking without difficulty. She is urinating normally. No other concerns or complaints. Denies any fever, head injury, neck pain, changes in speech/mentation/hearing, URI, sore throat, chest pain, palpitations, syncope, cough, shortness of breath, wheeze, dyspnea, abdominal pain, nausea/vomiting/di arrhea, urinary retention, dysuria, hematuria, loss of control of bowel or bladder, numbness/tingling, saddle anesthesia, muscle paralysis/weakness, or rash. - Related Data Allergies/Adverse Reactions: Sulfa (Sulfonamide Antibiotics) Allergy (Intermediate, Verified 07/31/18 07:53) palpitations Past Medical History - Social History Smoking Status: Never Smoker Chew tobacco use (# tins/day): No Frequency of alcohol use: Occasional Drug Abuse: None Family History: Arthritis, CAD, DM, Hyperlipidemia, Hypertension Patient has suicidal ideation: No Patient has homicidal ideation: No - Past Medical History Cardiac Medical History: Reports: Hx Hypertension Pulmonary Medical History: Reports: Hx Asthma, Hx Bronchitis, Hx Pneumonia Endocrine Medical History: Reports: Hx Hypothyroidism Renal/ Medical History: Denies: Hx Peritoneal Dialysis GI Medical History: Reports: Hx Diverticulitis, Hx Gastroesophageal Reflux Disease, Hx Hiatal Hernia, Hx Colonoscopy, Hx Endoscopy Musculoskeletal Medical History: Reports Hx Arthritis, Reports Hx Musculoskeletal Deformity Past Surgical History: Reports: Hx Adenoidectomy, Hx Breast Surgery - tumor removed, Hx Cholecystectomy, Hx Hysterectomy, Hx Orthopedic Surgery - right rotator cuff, Hx Tonsillectomy - Immunizations Immunizations up to date: Yes Hx Diphtheria, Pertussis, Tetanus Vaccination: Yes Review of Systems - Review of Systems -: Yes All other systems reviewed and negative Physical Exam - Vital signs Vitals: Temp Pulse Resp BP Pulse Ox 98.6 F 103 H 18 151/70 H 95 10/31/18 16:13 10/31/18 16:13 10/31/18 16:13 10/31/18 16:13 10/31/18 16:13 - Notes Notes: PHYSICAL EXAMINATION: GENERAL: Well-appearing, well-nourished and in no acute distress. A&Ox4 HEAD: Atraumatic, normocephalic. EYES: Pupils equal round and reactive to light (rather small), extraocular movements intact, sclera anicteric, left conjunctiva is red/injected w/o discharge or matting. Non-tender to palp of the globe. Rt wnl. No surrounding erythema or swelling noted. Visual acuity 20/40 left and 20/20 right (performed by myself at bedside with my own eye chart). Tonopen pressure: 14 right, 12 left. Wood's lamp/flourescein: No abrasion, laceration, ulceration, or delma sign noted. No obvious foreign body appreciated. ENT: EAC clear b/l. TM's intact b/l without erythema, fluid, or perforation. Nares patent and without discharge. oropharynx clear without exudates. No tonsilar hypertrophy or erythema. Moist mucous membranes. No sinus tenderness. Uvula midline. No palatine shift. No airway compromise. No drooling or hoarseness. NECK: Normal range of motion, supple without lymphadenopathy. No rigidity/meningismus. LUNGS: Breath sounds clear to auscultation bilaterally and equal. No wheezes rales or rhonchi. HEART: Regular rate and rhythm without murmurs, rubs, gallops. Musculoskeletal: Ext's b/l: FROM to passive/active. Strength 5+/5. Extremities: No cyanosis, clubbing, or edema b/l. Peripheral pulses 2+. Capillary refill less than 3 seconds. NEUROLOGICAL: Cranial nerves grossly intact. Normal speech, normal gait. Normal sensory, motor exams PSYCH: Normal mood, normal affect. SKIN: Warm, Dry, normal turgor, no rashes or lesions noted. - HEENT Visual acuity- Right eye: 20/40 Visual acuity- Left eye: 20/40 Visual acuity- Both eyes: 20/25 Corrective lenses worn: No Course - Re-evaluation Re-evalutation: 10/31/18 20:[address] Hooper who also eval'd the patient. Patient is an afebrile, well-hydrated, 73-year-old -Japanese female who presents to the emergency department with painful red eye of the left side. Vitals are currently acceptable without significant tachycardia, tachypnea, or hypoxia. Visual acuity in the left eye is 20/40 and the right eye is 20/20 performed by myself at the bedside. Patient has noted discomfort and is holding her left orbital area with her hand and has light sensitivity that was also noted during the evaluation. Patient's eye exam was otherwise positive for redness, but had a negative fluorescein evaluation and the pressure in the left eye it was 12 respectively with the right being 14. Patient has been on steroids for her upper respiratory infection over the last several days which could affect inflammatory markers, but we will pursue with a CBC, CMP, ESR, and CRP. The remaining most likely concerning diagnosis would be temporal arteritis. Even with unremarkable inflammatory markers, suspicion will still remain due to patient being on steroids. We will give her 60 mg of prednisone today and she is to continue this daily until evaluation with ophthalmology preferably tomorrow, but worse case scenario by Saturday. Patient does have an ciaio lumite injector that she follows with. Low suspicion for any retained corneal or lid foreign body, deep space infection including orbital cellulitis/abscess, acute glaucoma, penetrating globe injury, retinal detachment, meningitis, sepsis, fracture, compartment syndrome. Patient is in agreement with plan thus far. 10/31/18 21:39 ESR wnl. CRP mildly elevated, again taken with a grain of salt due to concomit ant steroid use. Potassium was mildly low so PO KCl provided. We will send her home on KCl as well. Plan as otherwise reviewed. Patient to return to the emergency department with any other worse jaida/concerning symptoms. Pt in agreement. - Vital Signs Vital signs: Temp Pulse Resp BP Pulse Ox 98.6 F 103 H 16 151/70 H 95 10/31/18 16:13 10/31/18 16:13 10/31/18 18:37 10/31/18 16:13 10/31/18 16:13 - Laboratory Result Diagrams: 10/31/18 20:20 10/31/18 20:20 Laboratory results interpreted by me: 10/31/18 10/31/18 10/31/18 20:20 20:20 20:20 RBC 5.64 H MCV 66 L MCH 21.3 L RDW 15.9 H Potassium 2.9 L* Carbon Dioxide 32 H Glucose 214 H Calcium 10.6 H AST 37 H C-React Prot High Sens 7.7026 H Discharge - Discharge Clinical Impression: Acute left eye pain, Red eye, Hypokalemia Condition: Stable Disposition: HOME, SELF-CARE Additional Instructions: As reviewed, the thing we are most concerned about with your eye at this time is an autoimmune process called temporal arteritis. The treatment is high dose steroids daily with very close follow-up and management otherwise by Ophthalmology. It is important that you take your steroid as directed daily and see your eye doctor FARZANA (tomorrow and if not then by Saturday). Do not hesitate to return if needed. Your potassium was low and you will need to take the potassium chloride medicine as instructed and to notify your family doctor on Saturday. Keep eyes clean Avoid scratching/touching eyes Wash hands regularly Maintain adequate fluid intake tylenol/ibuprofen as needed F/u: with your PCM in 2-3 days for a recheck F/u with your ciaio lumite injector tomorrow and if not tomorrow by Saturday Return to the ED with any worsening symptoms and/or development of fever, headache, changes in mentation/behavior/speech, worsening changes in vision, redness around the eyes, purulent discharge, sore throat, facial swelling, neck pain/stiffness, chest pain, palpitations, syncope, shortness of breath, trouble breathing, abdominal pain, n/v/d, blood in stool/urine, dysuria, or other worsening symptoms that are concerning to you. Prescriptions: Potassium Chloride 20 meq PO DAILY #4 tab.er.prt Prednisone [Deltasone 20 mg Tablet] 60 mg PO DAILY 5 Days #15 tablet Forms: Elevated Blood Pressure Referrals: TERESA SWANSON DO [ACTIVE STAFF] - Follow up tomorrow MAICOL RYAN MD [Primary Care Provider] - Follow up as needed BRITNEY MÁRQUEZ MD [ACTIVE STAFF] - Follow up as needed
--- NOTE | 2018-10-31 20:22 | ER Document Report ---
Doctor's Note Notes: 10/31/18 20:20 I was consulted on this patient by Andrea Henriquez and did evaluate the patient personally. In summary this 73-year-old female has a history of a cataract surgery in the left eye, presents with acute onset of pain from the left eye starting approximately 15 hours prior to arrival. Ocular pressures noted to be normal bilaterally, with fluorescein staining exam unremarkable. The patient does have an injected, red left eye and obviously is quite uncomfortable covering the eye with her hand when I walk into the room. She has blurring of vision as well as photophobia. Differential considerations would certainly include acute angle glaucoma but although normal ocular pressure does exclude this diagnosis. Traumatic iritis would be another consideration although this seems unlikely given the absence of any trauma. No evidence of corneal ulcer or abrasion. My primary concern is for giant cell arteritis particular given the patient's age, characterization of symptoms. The patient notably has been tapering off steroids after her cataract surgery and recently dropped from a total of 30 mg 3 weeks ago down to 5 mg today. This could have also been artificially suppressing this diagnosis and it could be resurging at this point because of the taper of steroids. This also could make inflammatory markers unreliable. We will obtain ESR, CRP and will refer the patient back to ophthalmology. We will increase her steroids back to 60 mg daily with the present of diagnosis of temporal arteritis. PHYSICAL EXAMINATION: GENERAL: Appears moderately uncomfortable but in no acute distress HEAD: Atraumatic, normocephalic. EYES: Pupils equal round and reactive to light, injected, red left eye. See physician assistant professor nurse education note for intraocular pressure and fluorescein staining exam. ENT: nares patent, oropharynx clear without exudates. Moist mucous membranes. NECK: Normal range of motion, supple without lymphadenopathy LUNGS: Breath sounds clear to auscultation bilaterally and equal. No wheezes rales or rhonchi. HEART: Regular rate and rhythm without murmurs ABDOMEN: Soft, nontender, normoactive bowel sounds. No guarding, no rebound. No masses appreciated. EXTREMITIES: Normal range of motion, no pitting or edema. No cyanosis. NEUROLOGICAL: No focal neurological deficits. Moves all extremities spontaneously and on command. PSYCH: Normal mood, normal affect. SKIN: Warm, Dry, normal turgor, no rashes or lesions noted.
[2018-10-31 20:44] LABS: ABSOLUTE BASOPHILS # (AUTO) 0.1 10^3/uL (0.0-0.2); ABSOLUTE EOSINOPHILS # (AUTO) 0.1 10^3/uL (0.0-0.6); ABSOLUTE LYMPHOCYTES (AUTO) 2.8 10^3/uL (0.5-4.7); ABSOLUTE MONOCYTES (AUTO) 0.7 10^3/uL (0.1-1.4); ABSOLUTE NEUT (AUTO) 4.4 10^3/uL (1.7-8.2); BASOPHILS % (AUTO) 0.6 % (0-2); EOSINOPHILS % (AUTO) 1.7 % (0-6); HEMATOCRIT 37.2 % (36.0-47.0); LYMPHOCYTES % (AUTO) 34.3 % (13-45); MEAN CORPUSCULAR HEMOGLOBIN 21.3 pg (27.0-33.4); MEAN CORPUSCULAR HGB CONC 32.2 g/dL (32.0-36.0); MEAN CORPUSCULAR VOLUME 66 fl (80-97); MONOCYTES % (AUTO) 9.3 % (3-13); PLATELET COUNT 300 10^3/uL (150-450); RED BLOOD COUNT 5.64 10^6/uL (3.72-5.28); RED CELL DISTRIBUTION WIDTH 15.9 % (11.5-14.0); SEGMENTED NEUTROPHILS % (AUTO) 54.1 % (42-78); TOTAL CELLS COUNTED % (AUTO) 100 %; WHITE BLOOD COUNT 8.1 10^3/uL (4.0-10.5)
[2018-10-31 20:52] LABS: ALANINE AMINOTRANSFERASE 45 U/L (9-52); ALBUMIN 4.1 g/dL (3.5-5.0); ALKALINE PHOSPHATASE 89 U/L (38-126); ANION GAP 8 (5-19); ASPARTATE AMINO TRANSFERASE 37 U/L (14-36); BILIRUBIN,DIRECT 0.3 mg/dL (0.0-0.4); BILIRUBIN,TOTAL 0.4 mg/dL (0.2-1.3); BLOOD UREA NITROGEN 19 mg/dL (7-20); CALCIUM 10.6 mg/dL (8.4-10.2); CARBON DIOXIDE 32 mmol/L (22-30); CHLORIDE 99 mmol/L (98-107); GLUCOSE 214 mg/dL (75-110); SODIUM 138.9 mmol/L (137-145); TOTAL PROTEIN 7.3 g/dL (6.3-8.2)
[2018-10-31 20:56] LABS: POTASSIUM 2.9 mmol/L (3.6-5.0)
[2018-10-31] MEDS ORDERED: POTASSIUM CHLORIDE 10 MEQ CAPSULE.ER PO ONE (20:58)
[2018-10-31 21:31] LABS: ERYTHROCYTE SEDIMENTATION RATE 20 mm/hr (0-30)
[2018-10-31 21:55] VITALS: BP 151/77
== END 2018-10-31 22:13 | disposition home or self-care (01) ==
LOC: ER 15:50
DX: H57.12 Ocular pain, left eye (principal); H57.89 Other specified disorders of eye and adnexa; H53.142 Visual discomfort, left eye; E87.6 Hypokalemia; R79.82 Elevated C-reactive protein (CRP); I10 Essential (primary) hypertension; R51 Headache; H53.8 Other visual disturbances; J06.9 Acute upper respiratory infection, unspecified; Z88.2 Allergy status to sulfonamides; J45.909 Unspecified asthma, uncomplicated
CPT/HCPCS: 99283; 36415; 85025; 85652; 80053; 86141; A9270 ×2; J7512

== ENCOUNTER 2018-12-25 12:17 | Emergency (ER) | payer MEDICARE, OTHER ==
[2018-12-25] MEDS ORDERED: ACETAMINOPHEN 325 MG TABLET PO ONE (12:48)
[2018-12-25] MEDS ORDERED: ONDANSETRON 4 MG TAB.RAPDIS PO ONE (12:48)
--- NOTE | 2018-12-25 12:49 | ER Document Report ---
ED Medical Screen (RME) - General Chief Complaint: Headache Stated Complaint: NAUSEA,HEADACHE,WEAKNESS Time Seen by Provider: 12/25/18 12:47 Primary Care Provider: MAICOL RYAN MD [Primary Care Provider] - Follow up as needed Mode of Arrival: Ambulatory Information source: Patient Notes: Patient presents complaining of left-sided headache that has been off and on since yesterday with dizziness in which she feels off balance. Patient does complain of nausea generalized weakness. Patient denies any chest pain abdominal pain or vomiting. I have greeted and performed a rapid initial assessment of this patient. A comprehensive ED assessment and evaluation of the patient, analysis of test results and completion of the medical decision making process will be conducted by additional ED providers. TRAVEL OUTSIDE OF THE [place] IN LAST 30 DAYS: No - Related Data Allergies/Adverse Reactions: Sulfa (Sulfonamide Antibiotics) Allergy (Intermediate, Verified 12/25/18 12:46) palpitations Past Medical History - Past Medical History Cardiac Medical History: Reports: Hx Hypertension Pulmonary Medical History: Reports: Hx Asthma, Hx Bronchitis, Hx Pneumonia Endocrine Medical History: Reports: Hx Hypothyroidism Renal/ Medical History: Denies: Hx Peritoneal Dialysis GI Medical History: Reports: Hx Diverticulitis, Hx Gastroesophageal Reflux Disease, Hx Hiatal Hernia, Hx Colonoscopy, Hx Endoscopy Musculoskeltal Medical History: Reports Hx Arthritis, Reports Hx Musculoskeletal Deformity Past Surgical History: Reports: Hx Adenoidectomy, Hx Breast Surgery - tumor removed, Hx Cholecystectomy, Hx Hysterectomy, Hx Orthopedic Surgery - right rotator cuff, Hx Tonsillectomy - Immunizations Immunizations up to date: Yes Hx Diphtheria, Pertussis, Tetanus Vaccination: Yes Physical Exam - Vital signs Vitals: Temp Pulse Resp BP Pulse Ox 97.8 F 102 H 18 153/82 H 98 12/25/18 12:26 12/25/18 12:26 12/25/18 12:26 12/25/18 12:26 12/25/18 12:26 - Cardiovascular Rhythm: Regular Heart sounds: S1 appreciated, S2 appreciated - Neurological Neuro grossly intact: Yes Colona Coma Scale Eye Opening: Spontaneous Dez Coma Scale Verbal: Oriented Colona Coma Scale Motor: Obeys Commands Dez Coma Scale Total: 15 Course - Vital Signs Vital signs: Temp Pulse Resp BP Pulse Ox 97.8 F 102 H 18 153/82 H 98 12/25/18 12:26 12/25/18 12:26 12/25/18 12:26 12/25/18 12:26 12/25/18 12:26 Doctor's Discharge - Discharge Referrals: MAICOL RYAN MD [Primary Care Provider] - Follow up as needed
[2018-12-25 13:19] LABS: ABSOLUTE LYMPHOCYTES (AUTO) 1.3 10^3/uL (0.5-4.7); ABSOLUTE MONOCYTES (AUTO) 0.4 10^3/uL (0.1-1.4); ABSOLUTE NEUT (AUTO) 7.7 10^3/uL (1.7-8.2); BASOPHILS % (AUTO) 0.5 % (0-2); EOSINOPHILS % (AUTO) 0.1 % (0-6); HEMATOCRIT 42.2 % (36.0-47.0); HEMOGLOBIN 13.5 g/dL (12.0-15.5); LYMPHOCYTES % (AUTO) 13.8 % (13-45); MEAN CORPUSCULAR HEMOGLOBIN 21.3 pg (27.0-33.4); MEAN CORPUSCULAR VOLUME 67 fl (80-97); MONOCYTES % (AUTO) 4.4 % (3-13); PLATELET COUNT 307 10^3/uL (150-450); RED BLOOD COUNT 6.34 10^6/uL (3.72-5.28); RED CELL DISTRIBUTION WIDTH 15.9 % (11.5-14.0); SEGMENTED NEUTROPHILS % (AUTO) 81.2 % (42-78); TOTAL CELLS COUNTED % (AUTO) 100 %; WHITE BLOOD COUNT 9.5 10^3/uL (4.0-10.5)
[2018-12-25 13:40] LABS: ALANINE AMINOTRANSFERASE 39 U/L (9-52); ALBUMIN 4.6 g/dL (3.5-5.0); ALKALINE PHOSPHATASE 104 U/L (38-126); ANION GAP 18 (5-19); ASPARTATE AMINO TRANSFERASE 34 U/L (14-36); BILIRUBIN,DIRECT 0.4 mg/dL (0.0-0.4); BILIRUBIN,TOTAL 0.9 mg/dL (0.2-1.3); BLOOD UREA NITROGEN 15 mg/dL (7-20); CALCIUM 10.5 mg/dL (8.4-10.2); CARBON DIOXIDE 25 mmol/L (22-30); CHLORIDE 85 mmol/L (98-107); POTASSIUM 3.8 mmol/L (3.6-5.0); SODIUM 128.2 mmol/L (137-145)
[2018-12-25 13:49] LABS: GLUCOSE 502 mg/dL (75-110)
[2018-12-25] MEDS ORDERED: NORMAL SALINE 1000 ML 1,000 ML IV ONE (14:02)
--- NOTE | 2018-12-25 14:05 | RADIOLOGY REPORT (SQ) ---
EXAM DESCRIPTION: CT HEAD WITHOUT COMPLETED DATE/TIME: 12/25/2018 1:56 pm REASON FOR STUDY: TALAMANTES, dizzy COMPARISON: None. TECHNIQUE: Axial images acquired through the brain without intravenous contrast. Images reviewed wi th bone, brain and subdural windows. Additional sagittal and coronal reconstructions were generated. Images stored on PACS. All CT scanners at this facility use dose modulation, iterative reconstruction, and/or weight based d osing when appropriate to reduce radiation dose to as low as reasonably achievable (ALARA). [facility]: Dose Right [facility]: CareDose [facility]: Dose Right [facility]: Teradose 4D [facility]: Qype RADIATION DOSE: CT Rad equipment meets quality standard of care and radiation dose reduction techniq ues were employed. CTDIvol: 53.2 mGy. DLP: 964 mGy-cm. mGy. LIMITATIONS: None. FINDINGS: VENTRICLES: Normal size and contour. CEREBRUM: No masses. No hemorrhage. No midline shift. No evidence for acute infarction. Normal gra y/white matter differentiation. No areas of low density in the white matter. CEREBELLUM: No masses. No hemorrhage. No alteration of density. No evidence for acute infarction. EXTRAAXIAL SPACES: No fluid collections. No masses. ORBITS AND GLOBE: No intra- or extraconal masses. Normal contour of globe without masses. CALVARIUM: No fracture. PARANASAL SINUSES: No fluid or mucosal thickening. SOFT TISSUES: No mass or hematoma. OTHER: No other significant finding. IMPRESSION: NORMAL BRAIN CT WITHOUT CONTRAST. EVIDENCE OF ACUTE STROKE: NO. COMMENT: Quality ID # [id number]: Final reports with documentation of one or more dose reduction techniques (e.g., Automated exposure control, adjustment of the mA and/or kV according to patient size, use of iterative reconstruction technique) TECHNICAL DOCUMENTATION: JOB ID: [id number] [employer]- All Rights Reserved Reading location - IP/workstation name: [email or web address]
[2018-12-25 14:22] LABS: APPEARANCE,URINE CLEAR; BILIRUBIN,URINE NEGATIVE (NEGATIVE); COLOR,URINE STRAW; GLUCOSE, URINE >=500 mg/dL (NEGATIVE); KETONES,URINE 20 mg/dL (NEGATIVE); LEUKOCYTE ESTERASE,URINE NEGATIVE (NEGATIVE); NITRITE,URINE NEGATIVE (NEGATIVE); PROTEIN,URINE NEGATIVE (NEGATIVE); URINE SPECIFIC GRAVITY 1.033; UROBILINOGEN,URINE NEGATIVE mg/dL (<2.0)
[2018-12-25 17:38] LABS: VENOUS BLOOD BASE EXCESS -0.1 mmol/L; VENOUS BLOOD HCO3 24.8 mmol/L (20-32); VENOUS BLOOD PCO2 41.2 mmHg (35-63); VENOUS BLOOD PH 7.4 (7.30-7.42)
--- NOTE | 2018-12-25 17:42 | EKG REPORT ---
SEVERITY:- ABNORMAL ECG - SINUS TACHYCARDIA WITH APC AND SINUS ARRHYTHMIA PROBABLE LEFT ATRIAL ABNORMALITY LEFT VENTRICULAR HYPERTROPHY : Confirmed by: Danielle Graff 25-Dec-2018 17:41:25
[2018-12-25] MEDS ORDERED: RINGERS SOLUTION,LACTATED 1,000 ML IV ONE (18:19)
[2018-12-25] MEDS ORDERED: INSULIN REG, HUMAN 100 UNIT/ML 3 ML VIAL (PYX) SUBCUT ONE (18:20)
[2018-12-25] MEDS ORDERED: GLIPIZIDE XL 5 MG TAB.ER.24 PO ONE (18:48)
[2018-12-25] MEDS ORDERED: METFORMIN HCL 500 MG TABLET PO ONE (18:48)
--- NOTE | 2018-12-25 18:49 | ER Document Report ---
ED General - General Chief Complaint: Headache Stated Complaint: NAUSEA,HEADACHE,WEAKNESS Time Seen by Provider: 12/25/18 12:47 Primary Care Provider: MAICOL RYAN MD [Primary Care Provider] - Follow up as needed Mode of Arrival: Ambulatory Notes: Patient is a 73-year-old female with past medical history of hypertension, currently on chronic steroids for an uncertain eye diagnosis the name of which she cannot recall, presenting with several days of feeling very fatigued, nauseous and having intermittent headaches. At the time of my exam patient states she has not had a headache in over 24 hours and that her main complaint is that she feels extremely fatigued and has no energy. She denies anything seems to improve or worsen her symptoms. Regards symptoms as being severe, constant in nature. Denies ever having similar symptoms in the past. She has not seen her primary care physician regarding her concerns today she. Adamantly denies any chest pain, shortness of breath, focal weakness, numbness or confusion. She does note polyuria and polydipsia. She does not regularly check her blood sugar stating that she does not carry a diagnosis of diabetes. TRAVEL OUTSIDE OF THE [place] IN LAST 30 DAYS: No - Related Data Allergies/Adverse Reactions: Sulfa (Sulfonamide Antibiotics) Allergy (Intermediate, Verified 12/25/18 12:46) palpitations Past Medical History - General Information source: Patient - Social History Smoking Status: Never Smoker Chew tobacco use (# tins/day): No Frequency of alcohol use: None Drug Abuse: None Lives with: Family Family History: Arthritis, CAD, DM, Hyperlipidemia, Hypertension Patient has suicidal ideation: No Patient has homicidal ideation: No - Past Medical History Cardiac Medical History: Reports: Hx Hypertension Pulmonary Medical History: Reports: Hx Asthma, Hx Bronchitis, Hx Pneumonia Endocrine Medical History: Reports: Hx Hypothyroidism Renal/ Medical History: Denies: Hx Peritoneal Dialysis GI Medical History: Reports: Hx Diverticulitis, Hx Gastroesophageal Reflux Disease, Hx Hiatal Hernia, Hx Colonoscopy, Hx Endoscopy Musculoskeletal Medical History: Reports Hx Arthritis, Reports Hx Musculoskeletal Deformity Past Surgical History: Reports: Hx Adenoidectomy, Hx Breast Surgery - tumor removed, Hx Cholecystectomy, Hx Hysterectomy, Hx Orthopedic Surgery - right rotator cuff, Hx Tonsillectomy - Immunizations Immunizations up to date: Yes Hx Diphtheria, Pertussis, Tetanus Vaccination: Yes Review of Systems - Review of Systems Notes: Constitutional: Negative for fever. Positive for fatigue HENT: Negative for sore throat. Eyes: Negative for visual changes. Cardiovascular: Negative for chest pain. Respiratory: Negative for shortness of breath. Gastrointestinal: Negative for abdominal pain, positive for nausea Genitourinary: Negative for dysuria. Musculoskeletal: Negative for back pain. Skin: Negative for rash. Neurological: Negative for headaches, weakness or numbness. 10 point ROS negative except as marked above and in HPI. Physical Exam - Vital signs Vitals: Temp Pulse Resp BP Pulse Ox 97.8 F 102 H 18 153/82 H 98 12/25/18 12:26 12/25/18 12:26 12/25/18 12:26 12/25/18 12:26 12/25/18 12:26 Interpretation: Hypertensive, Tachycardic Notes: PHYSICAL EXAMINATION: GENERAL: Well-appearing, well-nourished and in no acute distress. HEAD: Atraumatic, normocephalic. EYES: Pupils equal round and reactive to light, extraocular movements intact, sclera anicteric, conjunctiva are normal. ENT: nares patent, oropharynx clear without exudates. Moist mucous membranes. NECK: Normal range of motion, supple without lymphadenopathy LUNGS: Breath sounds clear to auscultation bilaterally and equal. No wheezes rales or rhonchi. HEART: Regular rate and rhythm, 4 out of 6 systolic ejection murmur ABDOMEN: Soft, nontender, normoactive bowel sounds. No guarding, no rebound. No masses appreciated. EXTREMITIES: Normal range of motion, no pitting or edema. No cyanosis. NEUROLOGICAL: No focal neurological deficits. Moves all extremities spontaneously and on command. PSYCH: Normal mood, normal affect. SKIN: Warm, Dry, normal turgor, no rashes or lesions noted. Course - Re-evaluation Re-evalutation: 12/25/18 18:44 Presentation of moderately symptomatic hyperglycemia. Patient is currently taking prednisone every day for "an eye issue" although she does not know the diagnosis and states that she is supposed to take her steroids for several more days. It is possible that the patient's upper glycemia is entirely based on steroids which she has been on for several months and she does not previously carry a diagnosis of diabetes. Her hemoglobin A1c is greater than 14. Patient's symptoms consist of fatigue, intermittent lightheadedness, and a headache yesterday. No chest pain or shortness of breath. There is no evidence of HHS or diabetic ketoacidosis on laboratories or based on clinical history. Patient's vitals are within normal limits. Treatment with insulin and IV fluids given here in the emergency department with appropriate response of the blood sugar. Patient does have primary care follow-up and I have advised that she follow-up with them regarding whether or not she will need to be on insulin for the duration of her steroid treatment. In the interim, I have started her on glipizide and metformin and have advised her to continue taking these until she has followed with her primary care doctor regarding her blood sugars ideally within the next 24 to 48 hours. At this time will discharge with return precautions and follow-up recommendations. Verbal discharge instructions given a the bedside and opportunity for questions given. Medication warnings reviewed. Patient is in agreement with this plan and has verbalized understanding of return precautions and the need for primary care follow-up in the next 24-72 hours. - Vital Signs Vital signs: Temp Pulse Resp BP Pulse Ox 97.8 F 102 H 18 153/82 H 98 12/25/18 12:26 12/25/18 12:26 12/25/18 12:26 12/25/18 12:26 12/25/18 12:26 - Laboratory Result Diagrams: 12/25/18 13:00 12/25/18 13:00 Laboratory results interpreted by me: 12/25/18 12/25/18 12/25/18 13:00 13:00 13:00 RBC 6.34 H MCV 67 L MCH 21.3 L RDW 15.9 H Seg Neutrophils % 81.2 H Sodium 128.2 L Chloride 85 L Glucose 502 H* Hemoglobin A1c % Calcium 10.5 H Urine Glucose (UA) >=500 H Urine Ketones 20 H 12/25/18 13:00 RBC MCV MCH RDW Seg Neutrophils % Sodium Chloride Glucose Hemoglobin A1c % > 14.0 H Calcium Urine Glucose (UA) Urine Ketones - Diagnostic Test Radiology reviewed: Image reviewed, Reports reviewed Radiology results interpreted by me: 12/25/18 18:47 CT head: No acute intercranial bleed or mass - EKG Interpretation by Me Additional EKG results interpreted by me: 12/25/18 18:50 This tachycardia, rate 102. No ST elevations or depressions. QTC 459. Changes consistent with LVH. Unchanged from previous EKG. Discharge - Discharge Clinical Impression: Hyperglycemia, Steroid-induced hyperglycemia, Dehydration Fatigue Qualifiers: Fatigue type: unspecified Qualified Code(s): R53.83 - Other fatigue Condition: Good Disposition: HOME, SELF-CARE Additional Instructions: You need to followup urgently with your primary care doctor as your blood sugars were dangerously high today. This may be due to the steroids that you are taking. You need to determine with your primary care doctor whether or not you will pursue insulin therapy while you are on steroids. You did not have any evidence of a dangerous condition associated with these blood sugars at this time. However, it is very important that you get your blood sugars under control. Please take all of the medications that have been prescribed today exactly as directed. You should avoid foods that are high in carbohydrates and sugary foods. Please return to emergency department immediately if you develop weakness, persistent vomiting, confusion, or any other symptoms that are concerning to you. Prescriptions: Glipizide [Glipizide Xl] 10 mg PO DAILY #30 tab.er.[id number] Metformin HCl [Glucophage 500 mg Tablet] 500 mg PO BID #60 tablet Referrals: MAICOL RYAN MD [Primary Care Provider] - Follow up tomorrow
[2018-12-25 20:16] VITALS: BP 142/70
== END 2018-12-25 20:40 | disposition home or self-care (01) ==
LOC: ER 12:17
DX: R51 Headache (principal); R11.0 Nausea; R53.1 Weakness; R53.83 Other fatigue; I10 Essential (primary) hypertension; R35.8 Other polyuria; R63.1 Polydipsia
CPT/HCPCS: 93005; 99284; 96360; 36415; 82962; 85025; 80053; 81001; 83036; 82803; 70450; 93010; A9270 ×5; J7030; J7120; J1815; S0119

== ENCOUNTER 2018-12-28 09:18 | Emergency (ER) | payer MEDICARE, OTHER ==
[2018-12-28] MEDS ORDERED: NORMAL SALINE 1000 ML 1,000 ML IV PRN (09:38)
--- NOTE | 2018-12-28 09:38 | ER Document Report ---
ED Medical Screen (RME) - General Chief Complaint: High Blood Sugar Stated Complaint: BLOOD SUGAR ISSUES Primary Care Provider: MAICOL RYAN MD [Primary Care Provider] - Follow up as needed TRAVEL OUTSIDE OF THE [place] IN LAST 30 DAYS: No - HPI Notes: 12/28/18 09:36 Patient is a 73-year-old female with hypertension and newly diagnosed diabetes who presents to the emergency department complaining of elevated glucose in the 3-400s. Patient states that she does have some nausea without any vomiting. She has been taking metformin 500 mg twice daily and glipizide on Saturday. Patient states that she is no longer on steroids. Her A1c was greater than 14 at her last visit. She did require some insulin to help bring her down at that time. She has no other concerns or complaints. Denies TALAMANTES, fever, neck pain, URI, CP, SOB, Abd pain, or rash. I have treated and performed a rapid initial assessment of this patient. A comprehensive ED assessment and evaluation of the patient, analysis of test results and completion of medical decision making process will be conducted by additional ED providers. PHYSICAL EXAMINATION: GENERAL: Well-appearing, well-nourished and in no acute distress. A&Ox4. Answers questions appropriately. LUNGS: Breath sounds clear to auscultation bilaterally and equal. No wheezes rales or rhonchi. HEART: Regular rate and rhythm without murmurs, rubs, gallops. NEUROLOGICAL: Normal speech, normal gait. PSYCH: Normal mood, normal affect. - Related Data Allergies/Adverse Reactions: Sulfa (Sulfonamide Antibiotics) Allergy (Intermediate, Verified 12/28/18 09:20) palpitations Past Medical History - Social History Chew tobacco use (# tins/day): No Frequency of alcohol use: None Drug Abuse: None - Past Medical History Cardiac Medical History: Reports: Hx Hypertension Pulmonary Medical History: Reports: Hx Asthma, Hx Bronchitis, Hx Pneumonia Endocrine Medical History: Reports: Hx Hypothyroidism Renal/ Medical History: Denies: Hx Peritoneal Dialysis GI Medical History: Reports: Hx Diverticulitis, Hx Gastroesophageal Reflux Disease, Hx Hiatal Hernia, Hx Colonoscopy, Hx Endoscopy Musculoskeltal Medical History: Reports Hx Arthritis, Reports Hx Musculoskeletal Deformity Past Surgical History: Reports: Hx Adenoidectomy, Hx Breast Surgery - tumor removed, Hx Cholecystectomy, Hx Hysterectomy, Hx Orthopedic Surgery - right rotator cuff, Hx Tonsillectomy - Immunizations Immunizations up to date: Yes Hx Diphtheria, Pertussis, Tetanus Vaccination: Yes Physical Exam - Vital signs Vitals: Temp Pulse Resp BP Pulse Ox 97.7 F 112 H 18 156/90 H 99 12/28/18 09:23 12/28/18 09:23 12/28/18 09:23 12/28/18 09:23 12/28/18 09:23 Course - Vital Signs Vital signs: Temp Pulse Resp BP Pulse Ox 97.7 F 112 H 18 156/90 H 99 12/28/18 09:23 12/28/18 09:23 12/28/18 09:23 12/28/18 09:23 12/28/18 09:23 Doctor's Discharge - Discharge Referrals: MAICOL RYAN MD [Primary Care Provider] - Follow up as needed
[2018-12-28] MEDS ORDERED: ONDANSETRON HCL INJ/PF 4 MG/2 ML SDV IV ONE ×2 (09:48→15:17)
[2018-12-28] MEDS ORDERED: RINGERS SOLUTION,LACTATED 1,000 ML IV ONE ×2 (10:06→11:12)
[2018-12-28 10:20] LABS: ABSOLUTE BASOPHILS # (AUTO) 0.1 10^3/uL (0.0-0.2); ABSOLUTE EOSINOPHILS # (AUTO) 0.1 10^3/uL (0.0-0.6); ABSOLUTE LYMPHOCYTES (AUTO) 2.4 10^3/uL (0.5-4.7); ABSOLUTE MONOCYTES (AUTO) 0.6 10^3/uL (0.1-1.4); ABSOLUTE NEUT (AUTO) 3.7 10^3/uL (1.7-8.2); BASOPHILS % (AUTO) 0.8 % (0-2); EOSINOPHILS % (AUTO) 0.9 % (0-6); HEMATOCRIT 41.7 % (36.0-47.0); HEMOGLOBIN 13.1 g/dL (12.0-15.5); LYMPHOCYTES % (AUTO) 35.2 % (13-45); MEAN CORPUSCULAR HGB CONC 31.5 g/dL (32.0-36.0); MEAN CORPUSCULAR VOLUME 67 fl (80-97); MONOCYTES % (AUTO) 9.2 % (3-13); PLATELET COUNT 273 10^3/uL (150-450); RED BLOOD COUNT 6.27 10^6/uL (3.72-5.28); RED CELL DISTRIBUTION WIDTH 15.6 % (11.5-14.0); SEGMENTED NEUTROPHILS % (AUTO) 53.9 % (42-78); TOTAL CELLS COUNTED % (AUTO) 100 %; WHITE BLOOD COUNT 6.8 10^3/uL (4.0-10.5)
[2018-12-28 10:31] LABS: ALANINE AMINOTRANSFERASE 50 U/L (9-52); ALBUMIN 4.4 g/dL (3.5-5.0); ALKALINE PHOSPHATASE 85 U/L (38-126); ANION GAP 16 (5-19); ASPARTATE AMINO TRANSFERASE 43 U/L (14-36); BILIRUBIN,DIRECT 0.3 mg/dL (0.0-0.4); BLOOD UREA NITROGEN 10 mg/dL (7-20); CALCIUM 10.2 mg/dL (8.4-10.2); CARBON DIOXIDE 26 mmol/L (22-30); CHLORIDE 92 mmol/L (98-107); GLUCOSE 312 mg/dL (75-110); POTASSIUM 3.7 mmol/L (3.6-5.0); SODIUM 134.3 mmol/L (137-145); TOTAL PROTEIN 6.5 g/dL (6.3-8.2)
[2018-12-28 10:53] LABS: APPEARANCE,URINE SLIGHTLY-CLOUDY; BILIRUBIN,URINE NEGATIVE (NEGATIVE); COLOR,URINE AMBER; GLUCOSE, URINE >=500 mg/dL (NEGATIVE); KETONES,URINE 80 mg/dL (NEGATIVE); LEUKOCYTE ESTERASE,URINE NEGATIVE (NEGATIVE); NITRITE,URINE NEGATIVE (NEGATIVE); PROTEIN,URINE NEGATIVE (NEGATIVE); URINE SPECIFIC GRAVITY 1.036
[2018-12-28 11:22] LABS: VENOUS BLOOD BASE EXCESS 2.9 mmol/L; VENOUS BLOOD HCO3 26.2 mmol/L (20-32); VENOUS BLOOD PCO2 35.8 mmHg (35-63); VENOUS BLOOD PH 7.48 (7.30-7.42)
--- NOTE | 2018-12-28 12:25 | ER Document Report ---
ED General - General TRAVEL OUTSIDE OF THE [place] IN LAST 30 DAYS: No <ZHANGSINANIKOLAY - Last Filed: 12/28/18 14:34> <CARRILLO HAYS - Last Filed: 12/28/18 15:20> - General Chief Complaint: High Blood Sugar Stated Complaint: BLOOD SUGAR ISSUES Time Seen by Provider: 12/28/18 10:07 Primary Care Provider: MAICOL YRAN MD [Primary Care Provider] - Follow up as needed Notes: Patient is a 73-year-old female presents to the emergency department for hyperglycemia. Patient states she was at this facility on Saturday. States she was diagnosed with diabetes at that time. States she was placed on metformin and glipizide. States she has been taking her medications as prescribed. States this morning she felt nauseated and had one episode of vomiting. Is denying any headache, lightheadedness, weakness, chest pain, shortness of breath. Patient states her father is a diabetic at home and has a glucometer. States she took her at home blood sugar and it read 370 which is why she presents to the emergency room. Patient states she was on prednisone for recent cataract surgery. Was told on Saturday when she was diagnosed with diabetes to stop the prednisone which she has done. Patient states her appointment with her primary care provider for continued diabetic care is not until Saturday. Past medical history: Hypertension, hyperlipidemia, diabetes Medications: Metformin, glipizide, Prilosec, Losartan, HCTZ Allergies: Sulfa (TASHA HOLCOMB) - Related Data Allergies/Adverse Reactions: Sulfa (Sulfonamide Antibiotics) Allergy (Intermediate, Verified 12/28/18 09:20) palpitations Past Medical History - General Information source: Patient, Relative - in room with patient - Social History Smoking Status: Unknown if Ever Smoked Chew tobacco use (# tins/day): No Frequency of alcohol use: None Drug Abuse: None Family History: Arthritis, CAD, DM, Hyperlipidemia, Hypertension Patient has suicidal ideation: No Patient has homicidal ideation: No - Past Medical History Cardiac Medical History: Reports: Hx Hypertension Pulmonary Medical History: Reports: Hx Asthma, Hx Bronchitis, Hx Pneumonia Endocrine Medical History: Reports: Hx Hypothyroidism Renal/ Medical History: Denies: Hx Peritoneal Dialysis GI Medical History: Reports: Hx Diverticulitis, Hx Gastroesophageal Reflux Disease, Hx Hiatal Hernia, Hx Colonoscopy, Hx Endoscopy Musculoskeletal Medical History: Reports Hx Arthritis, Reports Hx Musculoskeletal Deformity Past Surgical History: Reports: Hx Adenoidectomy, Hx Breast Surgery - tumor removed, Hx Cholecystectomy, Hx Hysterectomy, Hx Orthopedic Surgery - right rotator cuff, Hx Tonsillectomy - Immunizations Immunizations up to date: Yes Hx Diphtheria, Pertussis, Tetanus Vaccination: Yes <TASHA HOLCOMB - Last Filed: 12/28/18 14:34> Review of Systems - Review of Systems Constitutional: No symptoms reported EENT: No symptoms reported Cardiovascular: No symptoms reported Respiratory: No symptoms reported Gastrointestinal: See HPI Genitourinary: No symptoms reported Female Genitourinary: No symptoms reported Musculoskeletal: No symptoms reported Skin: No symptoms reported Hematologic/Lymphatic: No symptoms reported Neurological/Psychological: No symptoms reported <TASHA HOLCOMB - Last Filed: 12/28/18 14:34> Physical Exam <TASHA HOLCOMB - Last Filed: 12/28/18 14:34> - Vital signs Vitals: Temp Pulse Resp BP Pulse Ox 97.7 F 112 H 18 156/90 H 99 12/28/18 09:23 12/28/18 09:23 12/28/18 09:23 12/28/18 09:23 12/28/18 09:23 - Notes Notes: GENERAL: Alert, interacts well. No acute distress. HEAD: Normocephalic, atraumatic. EYES: Pupils equal, round, and reactive to light. Extraocular movements intact. ENT: Oral mucosa moist, tongue midline. NECK: Full range of motion. Supple. Trachea midline. LUNGS: Clear to auscultation bilaterally, no wheezes, rales, or rhonchi. No respiratory distress. HEART: Regular rate and rhythm. No murmur ABDOMEN: Soft, non-tender. Non-distended. Bowel sounds present in all 4 quadrants. EXTREMITIES: Moves all 4 extremities spontaneously. No edema, normal radial and dorsalis pedis pulses bilaterally. No cyanosis. BACK: no cervical, thoracic, lumbar midline tenderness. No saddle anesthesia, normal distal neurovascular exam. NEUROLOGICAL: Alert and oriented x3. Normal speech. cranial nerves II through XII grossly intact PSYCH: Normal affect, normal mood. SKIN: Warm, dry, normal turgor. No rashes or lesions noted. (TASHA HOLCOMB) Course - Laboratory Result Diagrams: 12/28/18 09:19 12/28/18 09:19 <TASHA HOLCOMB - Last Filed: 12/28/18 14:34> - Laboratory Result Diagrams: 12/28/18 09:19 12/28/18 09:19 <HAYS,CARRILLO Barnes - Last Filed: 12/28/18 15:20> - Re-evaluation Re-evalutation: 12/28/18 12:22 At this time nursing staff brings to my attention at the patient's stating she is "talking gibberish." Upon reexamination of the patient she is unable to say her name, she does not know her 's name. She is repeating the name Juan over and over again. She will not follow commands. She moves all extremities but not on command. Stroke Protocol initiated. My attending Dr. Hays notified, Dr. Hays at bedside with patient. 12/28/18 13:24 paged [facility] for transfer. Dr. Hays discussed case with Dr. Weems neurologist [facility]. Discussed talking to other family members about use of TPA. 12/28/18 13:59 At this time patient continues to decline. She is now somnolent and drooling. Patient moved to trauma bay to for continued airway control. Dr. Hays has spoken with patient's daughter who is agreeing to TPA treatment. Re-paged Dr. Weems neurologist at [facility]. Awaiting return phone call. Discussed with transfer center need for helicopter. Transfer center states they are working on transportation at this time. 12/28/18 14:34 Discussed this case again with neurologist to Dr. Weems. Discussed TPA bolus time of 1423. Discussed patient is now intubated with a blood pressure of 133/76 after propofol bolus due to blood pressure of 256/101. Dr. Weems made aware. Patient currently being secured to helicopters [facility]. (TASHA HOLCOMB) 12/28/18 13:10 Patient was evaluated as requested by [facility]. Patient is a 73-year-old female that presented with complaint of hyperglycemia but had an acute onset of confusion, a aphasia. Attempted to perform NIH stroke scale but unable to due to the patient's noncompliance, inability to follow commands. CT of the head was obt ained and reviewed by myself and showed no obvious intracranial hemorrhage. Spoke to the who is at the bedside regarding TPA and its risks and benefits and at this time he is declining. PHYSICAL EXAMINATION: GENERAL: Well-appearing, well-nourished and in no acute distress. HEAD: Atraumatic, normocephalic. EYES: Pupils equal round and reactive to light, extraocular movements intact, c onjunctiva are normal. ENT: Nares patent, oropharynx clear without exudates. Moist mucous membranes. NECK: Normal range of motion, supple without lymphadenopathy LUNGS: Breath sounds clear to auscultation bilaterally and equal. No wheezes rales or rhonchi. HEART: Regular rate and rhythm without murmurs ABDOMEN: Soft, nontender, nondistended abdomen. No guarding, no rebound. No masses appreciated. Female : deferred Musculoskeletal: Normal range of motion, no pitting or edema. No cyanosis. NEUROLOGICAL: Alert, awake, a phasic, does not follow commands, confused. PSYCH: Normal mood, normal affect. SKIN: Warm, Dry, normal turgor, no rashes or lesions noted. 12/28/18 14:41 During the patient's ED course she became more somnolent, began drooling, displayed involuntary movement of her right upper extremity and right lower extremity. Patient was administered Versed without cessation of her contractures, Ativan was then administered. Because of the patient's somnolent state and pending flight the decision to control her airway was made and intubation was performed without difficulty. After intubation patient had hypertension with blood pressure of 250/110 delaying TPA administration. After several minutes of receiving propofol her blood pressure was acceptable for TPA administration. TPA bolus was administered at 1423. Family updated and are on their way to [facility]. 12/28/18 15:10 (CARRILLO HAYS) - Vital Signs Vital signs: Temp Pulse Resp BP Pulse Ox 98.6 F 94 15 186/77 H 97 12/28/18 13:58 12/28/18 12:19 12/28/18 14:23 12/28/18 14:23 12/28/18 14:23 - Laboratory Laboratory results interpreted by me: 12/28/18 12/28/18 12/28/18 09:19 09:19 10:25 RBC 6.27 H MCV 67 L MCH 21.0 L MCHC 31.5 L RDW 15.6 H VBG pH Sodium 134.3 L Chloride 92 L Glucose 312 H POC Glucose AST 43 H Urine Glucose (UA) >=500 H Urine Ketones 80 H Urine Urobilinogen 2.0 H 12/28/18 12/28/18 11:00 12:41 RBC MCV MCH MCHC RDW VBG pH 7.48 H Sodium Chloride Glucose POC Glucose 213 H AST Urine Glucose (UA) Urine Ketones Urine Urobilinogen Procedures - Intubation Orotracheal Time of Intubation: 14:20 Airway evaluation: Copious secretions, Large tongue Mallampati Classification: Class 4 Medications: Etomidate, Pancuronium Intubation method: Orotracheal Blade type: Laura Blade size: 3 Equipment used: Glidescope ETT size: 7.5 ETT secured at: Teeth ETT secured at (cm): 21 Breath Sounds after Intubation: Equal End tidal CO2 confirmed: Yes Ventilator settings: SIMV <CARRILLO HAYS - Last Filed: 12/28/18 15:20> Critical Care Note - Critical Care Note Total time excluding time spent on procedures (mins): 45 - Minutes of critical care time spent in direct contact evaluating and reevaluating the patient, treating symptoms, reviewing labs and studies and speaking with family and consultants excluding any procedures <CARRILLO HAYS E - Last Filed: 12/28/18 15:20> Discharge <TASHA HOLCOMB - Last Filed: 12/28/18 14:34> <CARRILLO HAYS - Last Filed: 12/28/18 15:20> - Discharge Clinical Impression: Aphasia due to acute cerebrovascular accident (CVA), Abnormal involuntary movements Stroke Qualifiers: CVA mechanism: unspecified Qualified Code(s): I63.9 - Cerebral infarction, unspecified Condition: Critical Disposition: [facility] Referrals: MAICOL RYAN MD [Primary Care Provider] - Follow up as needed ED NIH Stroke Scale - NIH Stroke Scale *: 1. NIH scale should be completed with appropriate accompanying assessment tools. *: 2. The NIH should reflect what the patient is capable of doing and should not be coached by the clinician. 1a. Level of Consciousness: 0=Alert;keenly responsive -: 1=Drowsy -: 2=Obtunded -: 3=Coma/unresponsive or reflex to noxious stimuli. 1a. Responses: 1 1b. Orientation Questions: a. What month is it? -: b. How old are you? -: 0=Answers both questions correctly. -: 1=Answers one question correctly or patient is intubated or has orotracheal trauma. -: 2=Answers neither question correctly. 1b. Responses: 2 1c. Response to commands: a. Open and close eyes? -: b. Journeyman Lineman and release hand? -: Credit is given despite weakness. Demonstration of task is permitted. Substitute command if hands cannot be used. -: 0=Performs both tasks correctly -: 1=Performs one task correctly -: 2=Performs neither task correctly 1c. Responses: 2 2. Gaze: Establish eye contact and instruct patient to "Follow my finger" -: 0=Normal -: 1=Partial gaze palsy. Gaze is abnormal in one or both eyes, but where forced deviation or total gaze paresis is not present. -: 2=Forced deviation or total gaze paresis. 3. Visual Figueroa: Sees fingers in all four quadrants. -: 0=No visual loss. -: 1=Partial hemianopsia. -: 2=Complete hemianopsia. -: 3=Bilateral hemianopsia (including Cortical blindness) 4. Facial Movement: Instruct patient to: -: a. Show me your teeth -: b. Raise your eyebrows -: c. Close your eyes -: d. Smile -: 0=Normal symmetrical movement -: 1=Minor paralysis (flattened nasolabial fold, asymmetry on smiling). -: 2=Partial paralysis (total or near total paralysis of lower face). -: 3=Complete paralysis of upper and lower face 5. Motor functions (left arm): Alternate sides and extend each arm with palms down (90 degrees if sitting or 45 degrees for supine). -: 0=No drift;limb holds for full 10 seconds. -: 1=Drift; limb holds but drifts down before full 10 seconds, but does not hit bed. -: 2=Some effort against gravity; limb cannot get to or maintain position. -: 3=No effort against gravity; limb falls. -: 4=No movement. -: UN=Amputation, joint fusion, explain in comments. 5. Motor Functions (right arm): Alternate sides and extend each arm with palms down (90 degrees if sitting or 45 degrees for supine). -: 0=No drift;limb holds for full 10 seconds. -: 1=Drift; limb holds but drifts down before full 10 seconds, but does not hit bed. -: 2=Some effort against gravity; limb cannot get to or maintain position. -: 3=No effort against gravity; limb falls. -: 4=No movement. -: UN=Amputation, joint fusion, explain in comments. 5. Responses (right arm): 3 6. Motor Functions (left leg): With patient lying supine, alternate sides and extend each leg (30 degrees always while supine). -: 0=No drift, leg holds position for full 5 seconds -: 1=Drift; leg falls before full 5 seconds but does not hit bed. -: 2=Some effort against gravity, leg falls to bed but some effort against gravity. -: 3=No effort against gravity, leg falls to bed immediately. -: 4=No movement. -: UN=Amputation, joint fusion; explain in comments. 6. Responses (left leg): 3 6. Motor Functions (right leg): With patient lying supine, alternate sides and extend each leg (30 degrees always while supine). -: 0=No drift, leg holds position for full 5 seconds -: 1=Drift; leg falls before full 5 seconds but does not hit bed. -: 2=Some effort against gravity, leg falls to bed but some effort against gravity. -: 3=No effort against gravity, leg falls to bed immediately. -: 4=No movement. -: UN=Amputation, joint fusion; explain in comments. 6. Responses (right leg): 3 7. Limb Ataxia: With eyes open instruct patient to: -: a. "Touch your finger to your nose". -: b. "Touch your heel to your carias" -: 0=Absent -: 1=Present in one limb. -: 2=Present in two limbs. -: UN=Amputation or joint fusion; explain in comments. 8. Sensory: Test sensation using pinprick or noxious stimuli. Test as many body parts as possible. -: 0=Normal;no sensory loss -: 1=Mile to moderate sensory loss (patient feels pin prick but is less sharp on affected side). -: 2=Severe or total sensory loss. 9. Best Language: Instruct patient to: -: a. "Describe what you see in this picture." -: b. "Name the items in this picture." -: c. "Read these sentences." -: 0=No aphasia, normal -: 1=Mild to moderate aphasia. -: 2=Severe aphasia -: 3=Mute, global aphasia, no usable speech or auditory comprehension. 9. Responses: 2 10. Articulation, Dysarthia: Instruct patient to: -: "Read these words" or "Repeat these words" -: 0=Normal -: 1=Mild to moderate; patient may slur some words but can be understood without difficulty. -: 2=Severe; patients speech so slurred as to be unintelligible in the absence of dysphasia. -: UN=Intubated or other physical barrier, explain in comments. 10. Responses: 2 11. Extinction or inattention: 0=No abnormality -: 1= Visual, tactile, auditory, spatial, or personal inattention or extinction to bilateral simulation in one or the sensory modalities. -: 2=Profound robert-inattention or robert-inattention to more than one modality; does not recognize own hand. Total Score: 18 <CARRILLO HAYS - Last Filed: 12/28/18 15:20>
[2018-12-28] MEDS ORDERED: ALTEPLASE INJ 100 MG VIAL ONE (12:32)
--- NOTE | 2018-12-28 13:13 | RADIOLOGY REPORT (SQ) ---
EXAM DESCRIPTION: CHEST SINGLE VIEW COMPLETED DATE/TIME: 12/28/2018 1:03 pm REASON FOR STUDY: CVA COMPARISON: 07/16/2018 EXAM PARAMETERS: NUMBER OF VIEWS: One view. TECHNIQUE: Single frontal radiographic view of the chest acquired. RADIATION DOSE: NA LIMITATIONS: None. FINDINGS: LUNGS AND PLEURA: No opacities, masses or pneumothorax. No pleural effusion. MEDIASTINUM AND HILAR STRUCTURES: No masses. Contour normal. HEART AND VASCULAR STRUCTURES: Cardiomegaly. BONES: No acute findings. HARDWARE: None in the chest. OTHER: No other significant finding. IMPRESSION: Cardiomegaly without acute abnormality of the lungs. TECHNICAL DOCUMENTATION: JOB ID: [id number] [employer]- All Rights Reserved Reading location - IP/workstation name: [email or web address]
--- NOTE | 2018-12-28 13:14 | RADIOLOGY REPORT (SQ) ---
EXAM DESCRIPTION: CT HEAD WITHOUT COMPLETED DATE/TIME: 12/28/2018 12:57 pm REASON FOR STUDY: change in MS, slurred speech COMPARISON: 12/25/2018 TECHNIQUE: Axial images acquired through the brain without intravenous contrast. Images reviewed wi th bone, brain and subdural windows. Images stored on PACS. All CT scanners at this facility use dose modulation, iterative reconstruction, and/or weight based d osing when appropriate to reduce radiation dose to as low as reasonably achievable (ALARA). [facility]: Dose Right [facility]: CareDose [facility]: Dose Right [facility]: Teradose 4D [facility]: Coupad RADIATION DOSE: CT Rad equipment meets quality standard of care and radiation dose reduction techniq ues were employed. CTDIvol: 53.2 mGy. DLP: 1097 mGy-cm. mGy. LIMITATIONS: None. FINDINGS: VENTRICLES: Normal size and contour. CEREBRUM: No masses. No hemorrhage. No midline shift. No evidence for acute infarction. Normal gra y/white matter differentiation. No areas of low density in the white matter. CEREBELLUM: No masses. No hemorrhage. No alteration of density. No evidence for acute infarction. EXTRAAXIAL SPACES: No fluid collections. No masses. ORBITS AND GLOBE: No intra- or extraconal masses. Normal contour of globe without masses. CALVARIUM: No fracture. PARANASAL SINUSES: No fluid or mucosal thickening. SOFT TISSUES: No mass or hematoma. OTHER: No other significant finding. IMPRESSION: No acute intracranial pathology. No noncontrast CT evidence of acute stroke or hemorrha ge. EVIDENCE OF ACUTE STROKE: NO. Findings reported to ER by telephone, 1308 hours, 12/28/2018. COMMENT: Quality ID # [id number]: Final reports with documentation of one or more dose reduction techniques (e.g., Automated exposure control, adjustment of the mA and/or kV according to patient size, use of iterative reconstruction technique) TECHNICAL DOCUMENTATION: JOB ID: [id number] [employer]- All Rights Reserved Reading location - IP/workstation name: [email or web address]
--- NOTE | 2018-12-28 13:25 | RADIOLOGY REPORT (SQ) ---
EXAM DESCRIPTION: CTA HEAD; CTA NECK COMPLETED DATE/TIME: 12/28/2018 1:06 pm REASON FOR STUDY: stroke sx's COMPARISON: Same day CT brain TECHNIQUE: Post IV contrast scanning, thin section axial imaging through the neck and brain to evalu ate the arterial structures. Source and MIP images are saved and reviewed on PACS. Advanced 3D imaging as volume-rendering, MIPs, SSD performed? yes All CT scanners at this facility use dose modulation, iterative reconstruction, and/or weight based d osing when appropriate to reduce radiation dose to as low as reasonably achievable (ALARA). [facility]: Dose Right [facility]: CareDose [facility]: Dose Right [facility]: Teradose 4D [facility]: Enstratius CONTRAST TYPE AND DOSE: contrast/concentration: Isovue 350.00 mg/ml; Total Contrast Delivered: 70.0 ml; Total Saline Delivered: 75.0 ml RENAL FUNCTION: GFR > 60. RADIATION DOSE: 499 mGy cm LIMITATIONS: None. 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 The anterior and posterior cervical vasculature is patent to the skullbase. [place]: The anterior, middle, posterior cerebral arteries are all patent. No evidence of a neurysm or focal stenosis. POSTERIOR CIRCULATION: The distal vertebral arteries are patent as is the basilar artery. No aneurysm . BRAIN: No gross enhancing lesions as visualized. The superior cerebral hemispheres are not included in the field of view. BONES: Intact as visualized. SINUSES: No fluid or mucosal thickening. OTHER: No other significant finding. IMPRESSION: No evidence of cervical or intracranial stenosis, occlusion, or aneurysm. TECHNICAL DOCUMENTATION: JOB ID: [id number] Quality ID # [id number]: Final reports with documentation of one or more dose reduction techniques (e.g., Au tomated exposure control, adjustment of the mA and/or kV according to patient size, use of iterative reconstruction technique) 2010 [employer]- All Rights Reserved Reading location - IP/workstation name: [email or web address]
--- NOTE | 2018-12-28 13:25 | RADIOLOGY REPORT (SQ) ---
EXAM DESCRIPTION: CTA HEAD; CTA NECK COMPLETED DATE/TIME: 12/28/2018 1:06 pm REASON FOR STUDY: stroke sx's COMPARISON: Same day CT brain TECHNIQUE: Post IV contrast scanning, thin section axial imaging through the neck and brain to evalu ate the arterial structures. Source and MIP images are saved and reviewed on PACS. Advanced 3D imaging as volume-rendering, MIPs, SSD performed? yes All CT scanners at this facility use dose modulation, iterative reconstruction, and/or weight based d osing when appropriate to reduce radiation dose to as low as reasonably achievable (ALARA). [facility]: Dose Right [facility]: CareDose [facility]: Dose Right [facility]: Teradose 4D [facility]: Soundrop CONTRAST TYPE AND DOSE: contrast/concentration: Isovue 350.00 mg/ml; Total Contrast Delivered: 70.0 ml; Total Saline Delivered: 75.0 ml RENAL FUNCTION: GFR > 60. RADIATION DOSE: 499 mGy cm LIMITATIONS: None. 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 The anterior and posterior cervical vasculature is patent to the skullbase. [place]: The anterior, middle, posterior cerebral arteries are all patent. No evidence of a neurysm or focal stenosis. POSTERIOR CIRCULATION: The distal vertebral arteries are patent as is the basilar artery. No aneurysm . BRAIN: No gross enhancing lesions as visualized. The superior cerebral hemispheres are not included in the field of view. BONES: Intact as visualized. SINUSES: No fluid or mucosal thickening. OTHER: No other significant finding. IMPRESSION: No evidence of cervical or intracranial stenosis, occlusion, or aneurysm. TECHNICAL DOCUMENTATION: JOB ID: [id number] Quality ID # [id number]: Final reports with documentation of one or more dose reduction techniques (e.g., Au tomated exposure control, adjustment of the mA and/or kV according to patient size, use of iterative reconstruction technique) 2010 [employer]- All Rights Reserved Reading location - IP/workstation name: [email or web address]
[2018-12-28] MEDS ORDERED: ETOMIDATE INJ/PF 20 MG/10 ML SDV IV ONE ×2 (13:58→15:18)
[2018-12-28] MEDS ORDERED: PROPOFOL 1,000 MG/100 ML INFUS..BTL IV ONE (13:59)
[2018-12-28 14:02] LABS: INTERNATIONAL RATION (INR) 0.87; PARTIAL THROMBOPLASTIN TIME 29.5 SEC (23.5-35.8); PROTHROMBIN TIME 12.3 SEC (11.4-15.4)
[2018-12-28] MEDS ORDERED: MIDAZOLAM 2 MG/2 ML INJ ONE (14:03)
[2018-12-28] MEDS ORDERED: LORAZEPAM INJ 2 MG/1 ML VIAL ONE (14:08)
[2018-12-28] MEDS ORDERED: PROPOFOL INJ 200 MG/20 ML VIAL IV ONE ×2 (14:10→15:18)
[2018-12-28] MEDS ORDERED: ONDANSETRON HCL INJ/PF 4 MG/2 ML SDV ONE (14:15)
[2018-12-28 14:25] VITALS: BP 186/77
[2018-12-28 14:25] LABS: CREATINE KINASE MB 0.47 ng/mL (<4.55)
[2018-12-28 14:27] LABS: TROPONIN I < 0.012 ng/mL
[2018-12-28 14:28] LABS: URINE AMPHETAMINES SCREEN NEGATIVE; URINE BARBITURATES SCREEN NEGATIVE; URINE BENZODIAZEPINES SCREEN NEGATIVE; URINE COCAINE SCREEN NEGATIVE; URINE MARIJUANA (THC) SCREEN NEGATIVE; URINE METHADONE SCREEN NEGATIVE; URINE PHENCYCLIDINE SCREEN NEGATIVE
--- NOTE | 2018-12-28 14:45 | RADIOLOGY REPORT (SQ) ---
EXAM DESCRIPTION: CHEST SINGLE VIEW COMPLETED DATE/TIME: 12/28/2018 2:35 pm REASON FOR STUDY: ETT PLACEMENT COMPARISON: 12/28/2016 EXAM PARAMETERS: NUMBER OF VIEWS: One view. TECHNIQUE: Single frontal radiographic view of the chest acquired. RADIATION DOSE: NA LIMITATIONS: None. FINDINGS: Interval placement of endotracheal tube, tip at the right mainstem bronchus origin. Esoph agogastric tube with tip and side port below the diaphragm. Cardiomegaly without acute abnormality o f the lungs. IMPRESSION: 1. Interval placement of endotracheal tube, tip at the right mainstem bronchus origin. Recommend slight retraction. 2. Esophagogastric tube in appropriate position with tip and side port below the diaphragm. 3. Cardiomegaly without acute abnormality of the lungs. TECHNICAL DOCUMENTATION: JOB ID: [id number] [employer]- All Rights Reserved Reading location - IP/workstation name: [email or web address]
[2018-12-28] MEDS ORDERED: LORAZEPAM INJ 2 MG/1 ML VIAL IV ONE (15:17)
[2018-12-28] MEDS ORDERED: MIDAZOLAM 2 MG/2 ML INJ IV ONE (15:18)
[2018-12-28] MEDS ORDERED: ROCURONIUM BROMIDE INJ 50 MG/5 ML VIAL IV ONE ×2 (15:48→21:26)
--- NOTE | 2018-12-28 16:24 | EKG REPORT ---
SEVERITY:- ABNORMAL ECG - SINUS RHYTHM LVH WITH SECONDARY REPOLARIZATION ABNORMALITY : Confirmed by: Danielle Graff 28-Dec-2018 16:23:57
[2018-12-28] MEDS ORDERED: PROPOFOL 1,000 MG/100 ML INFUS..BTL IV PRN (21:24)
[2018-12-28] MEDS ORDERED: ALTEPLASE INJ 100 MG VIAL IV ONE (21:43)
== END 2018-12-28 14:35 | disposition short-term general hospital (02) ==
LOC: ER 09:18
DX: I63.9 Cerebral infarction, unspecified (principal); R47.01 Aphasia; R25.9 Unspecified abnormal involuntary movements; R11.0 Nausea; E11.9 Type 2 diabetes mellitus without complications; I10 Essential (primary) hypertension; E03.9 Hypothyroidism, unspecified; Z88.2 Allergy status to sulfonamides; Z90.49 Acquired absence of other specified parts of digestive tract; Z90.710 Acquired absence of both cervix and uterus; Z98.890 Other specified postprocedural states
CPT/HCPCS: 93005; 96376; 99291; 96361; 51702; 96374; 96375; 37195; 36415; 82553; 82962; 82550; 85025; 85610; 85730; 80053; 81001; 84484; 80307; 82803; 71045; 70450; 70496; 70498; 93010; 31500; J2250; J3490; J2704; J2997; J2060; J2405; J7030; J7120

== ENCOUNTER → 2019-04-22 | Outpatient (CLI) | payer MEDICARE, OTHER ==
[2019-04-22 09:23] LABS: ABSOLUTE EOSINOPHILS # (AUTO) 0.4 10^3/uL (0.0-0.6); ABSOLUTE LYMPHOCYTES (AUTO) 1.9 10^3/uL (0.5-4.7); ABSOLUTE MONOCYTES (AUTO) 0.5 10^3/uL (0.1-1.4); ABSOLUTE NEUT (AUTO) 2.7 10^3/uL (1.7-8.2); BASOPHILS % (AUTO) 0.7 % (0-2); EOSINOPHILS % (AUTO) 6.9 % (0-6); HEMATOCRIT 35.9 % (36.0-47.0); HEMOGLOBIN 11.7 g/dL (12.0-15.5); LYMPHOCYTES % (AUTO) 34.3 % (13-45); MEAN CORPUSCULAR HEMOGLOBIN 21.2 pg (27.0-33.4); MEAN CORPUSCULAR HGB CONC 32.7 g/dL (32.0-36.0); MEAN CORPUSCULAR VOLUME 65 fl (80-97); MONOCYTES % (AUTO) 8.9 % (3-13); PLATELET COUNT 357 10^3/uL (150-450); RED BLOOD COUNT 5.54 10^6/uL (3.72-5.28); RED CELL DISTRIBUTION WIDTH 15.9 % (11.5-14.0); SEGMENTED NEUTROPHILS % (AUTO) 49.2 % (42-78); TOTAL CELLS COUNTED % (AUTO) 100 %; WHITE BLOOD COUNT 5.5 10^3/uL (4.0-10.5)
[2019-04-22 09:48] LABS: ALBUMIN 4.4 g/dL (3.5-5.0); ALKALINE PHOSPHATASE 105 U/L (38-126); ASPARTATE AMINO TRANSFERASE 38 U/L (14-36); BILIRUBIN,DIRECT 0.2 mg/dL (0.0-0.4); BILIRUBIN,TOTAL 0.5 mg/dL (0.2-1.3); TOTAL PROTEIN 6.8 g/dL (6.3-8.2)
[2019-04-22 09:53] LABS: ANISOCYTOSIS SLIGHT; PLATELET COMMENT ADEQUATE; POIKILOCYTOSIS SLIGHT; POLYCHROMASIA SLIGHT; TARGET CELLS SLIGHT; TEAR DROP CELLS SLIGHT
== END ==
LOC: OD 08:31
PROVIDERS: ATTEND Ophthalmology
DX: H30.93 Unspecified chorioretinal inflammation, bilateral (principal); H35.353 Cystoid macular degeneration, bilateral; E11.9 Type 2 diabetes mellitus without complications; Z79.84 Long term (current) use of oral hypoglycemic drugs; H35.033 Hypertensive retinopathy, bilateral; H43.813 Vitreous degeneration, bilateral; H35.372 Puckering of macula, left eye
CPT/HCPCS: 36415; 80076; 85025

== ENCOUNTER 2019-05-06 13:26 | Observation (INO) | payer MEDICARE, OTHER ==
--- NOTE | 2019-05-06 14:12 | ER Document Report ---
ED Medical Screen (RME) - General Chief Complaint: Chest Wall Pain Stated Complaint: LEFT SIDE PAIN Time Seen by Provider: 05/06/19 14:05 Primary Care Provider: DOLORES JAMESON MD [Primary Care Provider] - Follow up as needed Mode of Arrival: Ambulatory Information source: Patient Notes: 74-year-old female presented to ED for complaint of left upper shoulder upper chest pain for about a week. She states she was coughing and coughed up with love plugged weekend today. She states her pain is worse with cough and movement. Patient denies any history of any heart problems except for her blood pressure cholesterol. She states she has had a stroke in the past diabetes asthma and reflux. She states she does not smoke rarely drinks and does not use any drugs. She is retired. She states she does live with her family. Patient is alert oriented respirations regular nonlabored lungs clear to auscultation. I have greeted and performed a rapid initial assessment of this patient. A comprehensive ED assessment and evaluation of the patient, analysis of test results and completion of medical decision making process will be conducted by an additional ED providers. TRAVEL OUTSIDE OF THE [place] IN LAST 30 DAYS: No - Related Data Allergies/Adverse Reactions: Sulfa (Sulfonamide Antibiotics) Allergy (Intermediate, Verified 12/28/18 09:20) palpitations Past Medical History - Past Medical History Cardiac Medical History: Reports: Hx Hypertension Pulmonary Medical History: Reports: Hx Asthma, Hx Bronchitis, Hx Pneumonia Endocrine Medical History: Reports: Hx Hypothyroidism Renal/ Medical History: Denies: Hx Peritoneal Dialysis GI Medical History: Reports: Hx Diverticulitis, Hx Gastroesophageal Reflux Disease, Hx Hiatal Hernia, Hx Colonoscopy, Hx Endoscopy Musculoskeltal Medical History: Reports Hx Arthritis, Reports Hx Musculoskeletal Deformity Past Surgical History: Reports: Hx Adenoidectomy, Hx Breast Surgery - tumor removed, Hx Cholecystectomy, Hx Hysterectomy, Hx Orthopedic Surgery - right rotator cuff, Hx Tonsillectomy - Immunizations Immunizations up to date: Yes Hx Diphtheria, Pertussis, Tetanus Vaccination: Yes Physical Exam - Vital signs Vitals: Temp Pulse Resp BP Pulse Ox 97.7 F 78 16 146/81 H 98 05/06/19 13:42 05/06/19 13:42 05/06/19 13:42 05/06/19 13:42 05/06/19 13:42 Course - Vital Signs Vital signs: Temp Pulse Resp BP Pulse Ox 97.7 F 78 16 146/81 H 98 05/06/19 13:42 05/06/19 13:42 05/06/19 13:42 05/06/19 13:42 05/06/19 13:42 Doctor's Discharge - Discharge Referrals: DOLORES JAMESON MD [Primary Care Provider] - Follow up as needed
[2019-05-06 14:43] LABS: ABSOLUTE BASOPHILS # (AUTO) 0.1 10^3/uL (0.0-0.2); ABSOLUTE EOSINOPHILS # (AUTO) 0.4 10^3/uL (0.0-0.6); ABSOLUTE MONOCYTES (AUTO) 0.7 10^3/uL (0.1-1.4); ABSOLUTE NEUT (AUTO) 5.5 10^3/uL (1.7-8.2); BASOPHILS % (AUTO) 0.7 % (0-2); EOSINOPHILS % (AUTO) 4.2 % (0-6); HEMATOCRIT 36.7 % (36.0-47.0); HEMOGLOBIN 11.8 g/dL (12.0-15.5); LYMPHOCYTES % (AUTO) 22.9 % (13-45); MEAN CORPUSCULAR HGB CONC 32.2 g/dL (32.0-36.0); MEAN CORPUSCULAR VOLUME 65 fl (80-97); MONOCYTES % (AUTO) 7.9 % (3-13); PLATELET COUNT 362 10^3/uL (150-450); RED BLOOD COUNT 5.64 10^6/uL (3.72-5.28); RED CELL DISTRIBUTION WIDTH 15.9 % (11.5-14.0); SEGMENTED NEUTROPHILS % (AUTO) 64.3 % (42-78); TOTAL CELLS COUNTED % (AUTO) 100 %; WHITE BLOOD COUNT 8.5 10^3/uL (4.0-10.5)
[2019-05-06 14:48] LABS: INTERNATIONAL RATION (INR) 1.03; PROTHROMBIN TIME 13.5 SEC (11.4-15.4)
[2019-05-06 14:49] LABS: PARTIAL THROMBOPLASTIN TIME 39.6 SEC (23.5-35.8)
[2019-05-06 15:04] LABS: ALBUMIN 4.3 g/dL (3.5-5.0); ALKALINE PHOSPHATASE 133 U/L (38-126); ANION GAP 9 (5-19); ASPARTATE AMINO TRANSFERASE 38 U/L (14-36); BILIRUBIN,DIRECT 0.1 mg/dL (0.0-0.4); BILIRUBIN,TOTAL 0.5 mg/dL (0.2-1.3); BLOOD UREA NITROGEN 15 mg/dL (7-20); CALCIUM 10.2 mg/dL (8.4-10.2); CARBON DIOXIDE 31 mmol/L (22-30); CHLORIDE 99 mmol/L (98-107); CREATINE KINASE 72 U/L (30-135); GLUCOSE 89 mg/dL (75-110); TOTAL PROTEIN 7.2 g/dL (6.3-8.2)
[2019-05-06 15:16] LABS: CREATINE KINASE MB 0.28 ng/mL (<4.55)
[2019-05-06 15:18] LABS: TROPONIN I < 0.012 ng/mL
[2019-05-06] MEDS ORDERED: ASPIRIN 325 MG TABLET PO ONE (15:23)
--- NOTE | 2019-05-06 15:25 | RADIOLOGY REPORT (SQ) ---
EXAM DESCRIPTION: SHOULDER LEFT 2 OR MORE VIEWS COMPLETED DATE/TIME: 05/06/2019 3:15 pm REASON FOR STUDY: Pain left upper chest and shoulder COMPARISON: None. NUMBER OF VIEWS: Three view. TECHNIQUE: Internal rotation, external rotation, and Y view images acquired of the left shoulder. LIMITATIONS: None. FINDINGS: MINERALIZATION: Normal. BONES: No acute fracture. No worrisome bone lesions. No significant osteophytes. GLENOHUMERAL JOINT: No significant findings. ACROMIOCLAVICULAR JOINT: No large osteophytes. SOFT TISSUES: No calcifications. VISUALIZED RIBS, SPINE, AND LUNG: No other significant finding. OTHER: No other significant finding. IMPRESSION: NEGATIVE STUDY OF THE LEFT SHOULDER. NO EXPLANATION FOR PAIN. TECHNICAL DOCUMENTATION: JOB ID: [id number] [employer]- All Rights Reserved Reading location - IP/workstation name: [email or web address]
--- NOTE | 2019-05-06 15:25 | RADIOLOGY REPORT (SQ) ---
EXAM DESCRIPTION: CHEST 2 VIEWS COMPLETED DATE/TIME: 05/06/2019 3:15 pm REASON FOR STUDY: Pain left upper chest and shoulder COMPARISON: 12/30/2018 EXAM PARAMETERS: NUMBER OF VIEWS: two views TECHNIQUE: Digital Frontal and Lateral radiographic views of the chest acquired. RADIATION DOSE: NA LIMITATIONS: none FINDINGS: LUNGS AND PLEURA: No opacities, masses or pneumothorax. No pleural effusion. MEDIASTINUM AND HILAR STRUCTURES: No masses or contour abnormalities. HEART AND VASCULAR STRUCTURES: Heart normal size. No evidence for failure. BONES: No acute findings. HARDWARE: None in the chest. OTHER: No other significant finding. IMPRESSION: NO ACUTE RADIOGRAPHIC FINDING IN THE CHEST. TECHNICAL DOCUMENTATION: JOB ID: [id number] [employer]- All Rights Reserved Reading location - IP/workstation name: [email or web address]
[2019-05-06] MEDS: NITROGLYCERIN 0.4 MG/TAB 25 TAB/BOTTLE SL PRN (16:14)
--- NOTE | 2019-05-06 16:28 | ER Document Report ---
ED Cardiac - General Chief Complaint: Chest Wall Pain Stated Complaint: LEFT SIDE PAIN Time Seen by Provider: 05/06/19 14:05 Primary Care Provider: DOLORES JAMESON MD [ASSOCIATE] - Follow up as needed Mode of Arrival: Ambulatory TRAVEL OUTSIDE OF THE [place] IN LAST 30 DAYS: No - HPI Notes: Patient planes of left-sided chest pain. She states it is worse with any type of movement or coughing. Patient states he had a dry cough for about 2 weeks. She states this pain started yesterday. There is been constant. It is moderate in intensity. She had no significant shortness of breath nausea or sweating. She denies any previous type of cardiac evaluation such as stress test or echocardiogram. States she is never had any type of heart disease in the past. She states she has had a stroke before however. The pain does radiate over to the left arm. It is a sharp sensation. - Related Data Allergies/Adverse Reactions: Sulfa (Sulfonamide Antibiotics) Allergy (Intermediate, Verified 12/28/18 09:20) palpitations Past Medical History - General Information source: Patient - Social History Smoking Status: Never Smoker Chew tobacco use (# tins/day): No Frequency of alcohol use: Rare Drug Abuse: None Family History: Arthritis, CAD, DM, Hyperlipidemia, Hypertension Patient has suicidal ideation: No Patient has homicidal ideation: No - Past Medical History Cardiac Medical History: Reports: Hx Hypertension Pulmonary Medical History: Reports: Hx Asthma, Hx Bronchitis, Hx Pneumonia Endocrine Medical History: Reports: Hx Hypothyroidism Renal/ Medical History: Denies: Hx Peritoneal Dialysis GI Medical History: Reports: Hx Diverticulitis, Hx Gastroesophageal Reflux Disease, Hx Hiatal Hernia, Hx Colonoscopy, Hx Endoscopy Musculoskeletal Medical History: Reports Hx Arthritis, Reports Hx Musculoskeletal Deformity Past Surgical History: Reports: Hx Adenoidectomy, Hx Breast Surgery - tumor removed, Hx Cholecystectomy, Hx Hysterectomy, Hx Orthopedic Surgery - right rotator cuff, Hx Tonsillectomy - Immunizations Immunizations up to date: Yes Hx Diphtheria, Pertussis, Tetanus Vaccination: Yes Review of Systems - Review of Systems Constitutional: denies: Chills, Fever Cardiovascular: Chest pain. denies: Palpitations Respiratory: Cough, Sputum. denies: Short of breath Gastrointestinal: denies: Abdominal pain, Diarrhea, Vomiting -: Yes All other systems reviewed and negative Physical Exam - Vital signs Vitals: Temp Pulse Resp BP Pulse Ox 97.7 F 78 16 146/81 H 98 05/06/19 13:42 05/06/19 13:42 05/06/19 13:42 05/06/19 13:42 05/06/19 13:42 Interpretation: Normal - General General appearance: Appears well, Alert - HEENT Head: Normocephalic, Atraumatic Eyes: Normal Pupils: PERRL - Respiratory Respiratory status: No respiratory distress Chest status: Nontender Breath sounds: Normal Chest palpation: Normal - Cardiovascular Rhythm: Regular Heart sounds: Normal auscultation Murmur: No - Abdominal Inspection: Normal Distension: No distension Bowel sounds: Normal Tenderness: Nontender Organomegaly: No organomegaly - Back Back: Normal, Nontender - Extremities General upper extremity: Normal inspection, Nontender, Normal color, Normal ROM, Normal temperature General lower extremity: Normal inspection, Nontender, Normal color, Normal ROM, Normal temperature, Normal weight bearing. No: Harpreet's sign - Neurological Neuro grossly intact: Yes Cognition: Normal Orientation: AAOx4 [place] Coma Scale Eye Opening: Spontaneous Dez Coma Scale Verbal: Oriented [place] Coma Scale Motor: Obeys Commands Dez Coma Scale Total: 15 Speech: Normal Motor strength normal: LUE, RUE, LLE, RLE Sensory: Normal - Psychological Associated symptoms: Normal affect, Normal mood - Skin Skin Temperature: Warm Skin Moisture: Dry Skin Color: Normal Course - Re-evaluation Re-evalutation: 05/06/19 17:09 Patient comes in with chest pain. She has had a dry cough and the chest pain sounds somewhat pleuritic. However patient has no changes on x-ray she has no fever and no white count. She has never had any type of cardiac evaluation. She does have a heart score of 5. It seems most prudent to have the patient evaluated for possible coronary artery disease. - Vital Signs Vital signs: Temp Pulse Resp BP Pulse Ox 97.7 F 78 18 147/83 H 100 05/06/19 13:42 05/06/19 13:42 05/06/19 16:13 05/06/19 16:13 05/06/19 16:13 - Laboratory Result Diagrams: 05/06/19 14:32 05/06/19 14:32 Laboratory results interpreted by me: 10/02/19 10/02/19 10/02/19 14:32 14:32 14:32 RBC 5.64 H Hgb 11.8 L MCV 65 L MCH 21.0 L RDW 15.9 H APTT 39.6 H Potassium 3.0 L* Carbon Dioxide 31 H AST 38 H Alkaline Phosphatase 133 H - Diagnostic Test Radiology reviewed: Image reviewed, Reports reviewed - EKG Interpretation by Me EKG shows normal: Sinus rhythm Rate: Normal - 73 Rhythm: NSR Lund/QRS: No: Right axis deviation, Left axis deviation Discharge - Discharge Clinical Impression: Hypokalemia Chest pain Qualifiers: Chest pain type: unspecified Qualified Code(s): R07.9 - Chest pain, unspecified Condition: Stable Disposition: ADMITTED INPATIENT Admitting Provider: Joseph (Hospitalist) Unit Admitted: Telemetry Referrals: DOLORES JAMESON MD [ASSOCIATE] - Follow up as needed
[2019-05-06] MEDS ORDERED: POTASSIUM CHLORIDE 20 MEQ PACKET PO ONE (17:11)
[2019-05-06] MEDS ORDERED: ACETAMINOPHEN 325 MG TABLET PO PRN (17:33)
[2019-05-06] MEDS ORDERED: ONDANSETRON HCL INJ/PF 4 MG/2 ML SDV IV PRN (17:33)
[2019-05-06] MEDS ORDERED: GLUCAGON,HUMAN RECOMB 1 MG INJ IM PRN (17:38)
[2019-05-06] MEDS ORDERED: DEXTROSE 40% GEL 15 GM TUBE PO PRN ×2 (17:38)
[2019-05-06] MEDS ORDERED: DEXTROSE 50%-WATER 25 GM/50 ML DISP.SYRIN IV PRN ×2 (17:38)
[2019-05-06] MEDS ORDERED: MORPHINE SULFATE 10 MG/ML INJ IV PRN (17:40)
--- NOTE | 2019-05-06 17:49 | PDOC H&P ---
History of Present Illness Admission Date/PCP: 05/06/19 17:17 MAICOL RYAN MD Patient complains of: chest Pain of 1 day duration History of Present Illness: LINDSEY WILLIS is a 74 year old female with history of stroke in December this year with no residual effects, hypertension, diabetes mellitus, asthma, gastric further reflux disease came to the emergency room with complaints of left-sided chest pain started as 10 x 10 radiating to the back after getting nitroglycerin in the emergency room it is 8/10. 2 troponins are negative. EKG was nonspecific. Medical consult was called for admission possible stress test tomorrow. Patient agreed to stay in the hospital for further management. Past Medical History Cardiac Medical History: Reports: Hypertension Pulmonary Medical History: Reports: Asthma, Bronchitis, Pneumonia Endocrine Medical History: Reports: Hypothyroidism GI Medical History: Reports: Diverticulitis, Gastroesophageal Reflux Disease, Hiatal Hernia Musculoskeltal Medical History: Reports: Arthritis Hematology: Reports: Anemia - HX Denies: Sickle Cell Disease Past Surgical History Past Surgical History: Reports: Adenoidectomy, Cholecystectomy, Hysterectomy, Orthopedic Surgery - right rotator cuff, Tonsillectomy Denies: Amputation Social History Information Source: Patient Smoking Status: Never Smoker Frequency of Alcohol Use: Occasional Hx Recreational Drug Use: No Drugs: None - Advance Directive Resuscitation Status: Full Code Family History Family History: Arthritis, CAD, DM, Hyperlipidemia, Hypertension Parental Family History Reviewed: Yes - Dad with heart disease and hypertension Children Family History Reviewed: Yes Sibling(s) Family History Reviewed.: Yes Medication/Allergy Home Medications: Albuterol 2 puff IH Q4H 10/01/11 Ferrous Sulfate [Iron] 325 mg PO BID 10/01/11 Multivitamin [Multivitamins] 1 each PO DAILY 10/01/11 Omeprazole [Prilosec] 20 mg PO DAILY 10/01/11 Vitamin E [Formula E] 400 unit PO DAILY 10/01/11 Aspirin [Ecotrin 81 mg EC Tablet] 81 mg PO DAILY 02/07/18 Besifloxacin HCl [Besivance 0.6% Oph Susp 5 ml] 1 drop OP .12, 3 & 8 PM TODAY 02/07/18 Carboxymethylcellulose Sodium [Refresh Tears] 15 ml OP PRN PRN 02/07/18 Cetirizine HCl [Zyrtec] 10 mg PO DAILY 07/06/18 Difluprednate [Durezol] 1 drop OP .12, 3 & 8 PM TODAY 02/07/18 Fluticasone Propionate [Flonase Nasal [place] 50 Mcg/[place] 16 gm] 1 spray NASL Q12 02/07/18 Fluticasone Propionate [Flovent Hfa 110 Mcg Inhalation Aerosol 12 gm] 1 puff IH Q12 02/07/18 Hydrochlorothiazide 25 mg PO DAILY 02/07/18 Ibuprofen [Motrin 800 mg Tablet] 200 mg PO Q8H PRN 02/07/18 Nepafenac [Ilevro] 1 drop OP .12, 3 & 8 PM TODAY 02/07/18 Prednisone [Sterapred Ds] 1 pkg PO ASDIR PRN 02/07/18 Telmisartan/Hydrochlorothiazid [Telmisartan-Hctz 40-12.5 mg Tb] 1 each PO DAILY 03/27/18 Azithromycin [Zithromax 250 mg Tablet] 250 mg PO ASDIR PRN #6 tablet 07/16/18 Ibuprofen [Motrin 600 mg Tablet] 600 mg PO Q8HP PRN #10 tablet 07/31/18 Tramadol HCl [Ultram 50 mg Tablet] 50 mg PO ASDIR PRN #10 tablet 07/31/18 Potassium Chloride 20 meq PO DAILY #4 tab.er.prt 10/31/18 Prednisone [Deltasone 20 mg Tablet] 60 mg PO DAILY 5 Days #15 tablet 10/31/18 Glipizide [Glipizide Xl] 10 mg PO DAILY #30 tab.er.24 12/25/18 Metformin HCl [Glucophage 500 mg Tablet] 500 mg PO BID #60 tablet 12/25/18 Allergies/Adverse Reactions: Sulfa (Sulfonamide Antibiotics) Allergy (Intermediate, Verified 12/28/18 09:20) palpitations Review of Systems Constitutional: ABSENT: fatigue, fever(s), headache(s), weakness Eyes: ABSENT: visual disturbances Ears: ABSENT: hearing changes Nose, Mouth, and Throat: ABSENT: sore throat Cardiovascular: PRESENT: chest pain. ABSENT: edema, palpitations Respiratory: ABSENT: dyspnea, hemoptysis Gastrointestinal: ABSENT: coffee ground emesis, diarrhea, dysphagia, heartburn, hematemesis, melena, nausea, vomiting Genitourinary: ABSENT: dysuria, hematuria Musculoskeletal: ABSENT: joint swelling Integumentary: ABSENT: rash, wounds Neurological: ABSENT: abnormal gait, abnormal speech, confusion, dizziness, focal weakness, syncope Psychiatric: ABSENT: anxiety, depression, homidical ideation, suicidal ideation Physical Exam Vital Signs: Temp Pulse Resp BP Pulse Ox 97.7 F 78 18 147/83 H 100 05/06/19 13:42 05/06/19 13:42 05/06/19 16:13 05/06/19 16:13 05/06/19 16:13 Intake & Output 05/05/19 05/06/19 05/07/19 06:59 06:59 06:59 Weight 82.8 kg General appearance: PRESENT: no acute distress, cooperative, obese Head exam: PRESENT: atraumatic Eye exam: PRESENT: PERRLA Mouth exam: PRESENT: moist, tongue midline Teeth exam: PRESENT: poor dentation Neck exam: ABSENT: carotid bruit, JVD, lymphadenopathy, thyromegaly Respiratory exam: PRESENT: decreased breath sounds Cardiovascular exam: PRESENT: RRR. ABSENT: diastolic murmur, rubs, systolic murmur GI/Abdominal exam: PRESENT: normal bowel sounds, soft. ABSENT: distended, guarding, mass, organolmegaly, rebound, tenderness Rectal exam: PRESENT: deferred Extremities exam: PRESENT: full ROM. ABSENT: calf tenderness, clubbing, pedal edema Neurological exam: PRESENT: alert, awake, oriented to person, oriented to place, oriented to time, oriented to situation, CN II-XII grossly intact. ABSENT: motor sensory deficit Psychiatric exam: PRESENT: appropriate affect, normal mood. ABSENT: homicidal ideation, suicidal ideation Skin exam: PRESENT: dry, intact, warm. ABSENT: cyanosis, rash Results Laboratory Results: 05/06/19 14:32 05/06/19 14:32 05/06/19 05/06/19 14:32 14:32 WBC 8.5 RBC 5.64 H Hgb 11.8 L Hct 36.7 MCV 65 L MCH 21.0 L MCHC 32.2 RDW 15.9 H Plt Count 362 Seg Neutrophils % 64.3 Sodium 139.2 Potassium 3.0 L* Chloride 99 Carbon Dioxide 31 H Anion Gap 9 BUN 15 Creatinine 0.69 Est GFR ( Amer) > 60 Glucose 89 Calcium 10.2 Total Bilirubin 0.5 AST 38 H Alkaline Phosphatase 133 H Total Protein 7.2 Albumin 4.3 05/06/19 05/06/19 05/06/19 14:32 14:32 16:22 Creatine Kinase 72 CK-MB (CK-2) 0.28 Troponin I < 0.012 < 0.012 Impressions: Chest X-Ray 05/06/19 14:09 IMPRESSION: NO ACUTE RADIOGRAPHIC FINDING IN THE CHEST. Shoulder X-Ray 05/06/19 14:09 IMPRESSION: NEGATIVE STUDY OF THE LEFT SHOULDER. NO EXPLANATION FOR PAIN. Assessment and Plan - Diagnosis (1) Chest pain Qualifiers: Chest pain type: unspecified Qualified Code(s): R07.9 - Chest pain, unspecified Is this a current diagnosis for this admission?: Yes (2) Hypokalemia Is this a current diagnosis for this admission?: Yes (3) HTN (hypertension) Is this a current diagnosis for this admission?: No (4) CVA (cerebral vascular accident) Is this a current diagnosis for this admission?: No - Plan Summary Summary: 1.chest pain Patient came to the emergency room with complaints of chest pain 10 x 10 initially eased off to 8/10 as per the patient after giving nitroglycerin in the emergency room. 2 troponins are came back negative. EKGs are nonspecific. Plan to admit her to [facility] as observation patient to continue with trending troponins. To do the stress test tomorrow. Patient is on Plavix and atorvastatin at home dose of renewed. Started on aspirin 325 mg p.o. daily and started on Lovenox 40 mg subcu daily. GI prophylaxis initiated. Started on morphine 2 mg IV every 4 PRN for chest pains. Placed on oxygen 2 L nasal cannula. Lipid panel is requested and the hemoglobin A1c was requested. 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 Hypokalemia may be secondary to medications. To give potassium supplementations and recheck EKG this evening and recheck the labs tomorrow. 3.hypertension Latest blood pressure is 147/83. With pulse rate of 72. Plan to check blood pressure every shift. 4.History of CVA Patient is given the history of CVA in December this year she was admitted to [facility] at that time MRI of the brain was negative at that time as per the patient. - Time Time Spent with patient: 25-34 minutes Medications reviewed and adjusted accordingly: Yes Anticipated discharge: Home
[2019-05-06] MEDS ORDERED: POTASSIUM CHLORIDE 10 MEQ CAPSULE.ER PO ONE (18:15)
[2019-05-06] MEDS: ENOXAPARIN SODIUM INJ 40 MG/0.4 ML DISP.SYRIN SUBCUT SCH (18:49)
--- NOTE | 2019-05-06 19:56 | EKG REPORT ---
SEVERITY:- NORMAL ECG - SINUS RHYTHM : Confirmed by: Maddy Salazar MD 06-May-2019 19:55:55
[2019-05-06] MEDS: ATORVASTATIN CALCIUM 20 MG TABLET PO SCH (21:02)
[2019-05-06] MEDS: INSULIN LISPRO 100 UNIT/ML 3 ML VIAL SUBCUT SCH (21:04)
[2019-05-06 22:49] LABS: CREATINE KINASE MB < 0.22 ng/mL (<4.55); TROPONIN I < 0.012 ng/mL
[2019-05-07] MEDS: NITROGLYCERIN 0.4 MG/TAB 25 TAB/BOTTLE SL PRN (01:29)
[2019-05-07 05:40] LABS: HEMATOCRIT 33.6 % (36.0-47.0); HEMOGLOBIN 10.8 g/dL (12.0-15.5); MEAN CORPUSCULAR HEMOGLOBIN 20.9 pg (27.0-33.4); MEAN CORPUSCULAR HGB CONC 32.2 g/dL (32.0-36.0); MEAN CORPUSCULAR VOLUME 65 fl (80-97); PLATELET COUNT 329 10^3/uL (150-450); RED BLOOD COUNT 5.17 10^6/uL (3.72-5.28); WHITE BLOOD COUNT 6.7 10^3/uL (4.0-10.5)
[2019-05-07 06:06] LABS: ALBUMIN 3.7 g/dL (3.5-5.0); ALKALINE PHOSPHATASE 107 U/L (38-126); ANION GAP 7 (5-19); ASPARTATE AMINO TRANSFERASE 32 U/L (14-36); BILIRUBIN,DIRECT 0.1 mg/dL (0.0-0.4); BILIRUBIN,TOTAL 0.6 mg/dL (0.2-1.3); BLOOD UREA NITROGEN 15 mg/dL (7-20); CALCIUM 10.2 mg/dL (8.4-10.2); CARBON DIOXIDE 30 mmol/L (22-30); CHLORIDE 104 mmol/L (98-107); CREATINE KINASE 41 U/L (30-135); GLUCOSE 100 mg/dL (75-110); TOTAL PROTEIN 6.3 g/dL (6.3-8.2); TRIGLYCERIDES 100 mg/dL (<150)
[2019-05-07 06:16] LABS: DIRECT LDL 42 mg/dL (<100)
[2019-05-07 06:21] LABS: ABSOLUTE LYMPHOCYTES# (MANUAL) 1.6 10^3/uL (0.5-4.7); ABSOLUTE MONOCYTES # (MANUAL) 0.9 10^3/uL (0.1-1.4); BASOPHILS % (MANUAL) 0 % (0-2); EOSINOPHILS % (MANUAL) 6 % (0-6); LYMPHOCYTES % (MANUAL) 24 % (13-45); MONOCYTES % (MANUAL) 13 % (3-13); NT PRO BNP 82 pg/mL (5-900); NUCLEATED RED BLOOD CELLS 1 /100 WBC (0); SEGMENTED NEUTROPHILS % (MAN) 57 % (42-78); TOTAL CELLS COUNTED 100
[2019-05-07 06:22] LABS: OVALOCYTES 2+; PLATELET COMMENT ADEQUATE
[2019-05-07 06:24] LABS: CREATINE KINASE MB < 0.22 ng/mL (<4.55); TROPONIN I < 0.012 ng/mL
[2019-05-07 07:48] LABS: POTASSIUM 4.3 mmol/L (3.6-5.0)
[2019-05-07] MEDS ORDERED: INFLUENZA QUAD (6MOS+) 2019-20 VAC 0.5 ML SYR IM ONE (08:00)
[2019-05-07] MEDS ORDERED: REGADENOSON INJ 0.4 MG/5 ML DISP.SYRIN IV ONE (10:00)
[2019-05-07] MEDS: INSULIN LISPRO 100 UNIT/ML 3 ML VIAL SUBCUT SCH ×4 (10:57→21:42)
[2019-05-07] MEDS: ENOXAPARIN SODIUM INJ 40 MG/0.4 ML DISP.SYRIN SUBCUT SCH (13:10)
[2019-05-07] MEDS: CLOPIDOGREL BISULFATE 75 MG TABLET PO SCH (13:10)
[2019-05-07] MEDS: ASPIRIN 325 MG TABLET PO SCH (13:10)
--- NOTE | 2019-05-07 13:57 | PDOC PROGRESS REPORT ---
Subjective Progress Note for:: 05/07/19 Subjective:: 05/07/2019 Chest pain-serial troponins negative. No further chest pain at this time. Patient did have Cardiolite stress test this a.m. awaiting results. Reason For Visit: CHEST PAIN Physical Exam Vital Signs: Temp Pulse Resp BP Pulse Ox 97.8 F 88 17 132/70 H 93 05/07/19 11:10 05/07/19 11:10 05/07/19 11:10 05/07/19 11:10 05/07/19 11:10 Intake & Output 05/06/19 05/07/19 05/08/19 06:59 06:59 06:59 Intake Total 360 Output Total 200 Balance -200 360 Weight 83.8 kg Results Laboratory Results: 05/07/19 04:39 05/07/19 04:39 05/06/19 05/06/19 05/07/19 14:32 14:32 04:39 WBC 8.5 RBC 5.64 H Hgb 11.8 L Hct 36.7 MCV 65 L MCH 21.0 L MCHC 32.2 RDW 15.9 H Plt Count 362 Seg Neutrophils % 64.3 Sodium 139.2 141.3 Potassium 3.0 L* 4.3 D Chloride 99 104 Carbon Dioxide 31 H 30 Anion Gap 9 7 BUN 15 15 Creatinine 0.69 0.70 Est GFR ( Amer) > 60 > 60 Glucose 89 100 Calcium 10.2 10.2 Magnesium 1.9 Total Bilirubin 0.5 0.6 AST 38 H 32 Alkaline Phosphatase 133 H 107 Total Protein 7.2 6.3 Albumin 4.3 3.7 Triglycerides 100 Cholesterol 97.60 LDL Cholesterol Direct 42 VLDL Cholesterol 20.0 HDL Cholesterol 38 L 05/07/19 04:39 WBC 6.7 RBC 5.17 Hgb 10.8 L Hct 33.6 L MCV 65 L MCH 20.9 L MCHC 32.2 RDW 16.0 H Plt Count 329 Seg Neutrophils % Not Reportable Sodium Potassium Chloride Carbon Dioxide Anion Gap BUN Creatinine Est GFR ( Amer) Glucose Calcium Magnesium Total Bilirubin AST Alkaline Phosphatase Total Protein Albumin Triglycerides Cholesterol LDL Cholesterol Direct VLDL Cholesterol HDL Cholesterol 05/06/19 05/06/19 05/06/19 14:32 14:32 16:22 Creatine Kinase 72 CK-MB (CK-2) 0.28 Troponin I < 0.012 < 0.012 NT-Pro-B Natriuret Pep 05/06/19 05/06/19 05/07/19 22:19 22:19 04:39 Creatine Kinase 55 41 CK-MB (CK-2) < 0.22 Troponin I < 0.012 NT-Pro-B Natriuret Pep 05/07/19 04:39 Creatine Kinase CK-MB (CK-2) < 0.22 Troponin I < 0.012 NT-Pro-B Natriuret Pep 82 Impressions: Chest X-Ray 05/06/19 14:09 IMPRESSION: NO ACUTE RADIOGRAPHIC FINDING IN THE CHEST. Shoulder X-Ray 05/06/19 14:09 IMPRESSION: NEGATIVE STUDY OF THE LEFT SHOULDER. NO EXPLANATION FOR PAIN. Assessment and Plan - Plan Summary Summary: 1.chest pain Patient came to the emergency room with complaints of chest pain 10 x 10 initially eased off to 8/10 as per the patient after giving nitroglycerin in the emergency room. 2 troponins are came back negative. EKGs are nonspecific. Plan to admit her to [facility] as observation patient to continue with trending troponins. To do the stress test tomorrow. Patient is on Plavix and atorvastatin at home dose of renewed. Started on aspirin 325 mg p.o. daily and started on Lovenox 40 mg subcu daily. GI prophylaxis initiated. Started on morphine 2 mg IV every 4 PRN for chest pains. Placed on oxygen 2 L nasal cannula. Lipid panel is requested and the hemoglobin A1c was requested. 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 Hypokalemia may be secondary to medications. To give potassium supplementations and recheck EKG this evening and recheck the labs tomorrow. 3.hypertension Latest blood pressure is 147/83. With pulse rate of 72. Plan to check blood pressure every shift. 4.History of CVA Patient is given the history of CVA in December this year she was admitted to [facility] at that time MRI of the brain was negative at that time as per the patient. 05/07/2019 Chest pain-no further bouts of chest pain at this time. Serial troponins negative. Patient did have Cardiolite stress test this a.m. awaiting results. Will make change plan of care based on findings. Hypokalemia-potassium 4.8 today. Will follow with daily BMPs Hypertension-stable continue to follow History of CVA-stable, monitor. - Time Time Spent with patient: 15-24 minutes
[2019-05-07] MEDS: ATORVASTATIN CALCIUM 20 MG TABLET PO SCH (21:36)
[2019-05-07] MEDS: FLUTICASONE PROPIONATE HFA 110 MCG/PUFF 12 GM MDI IH SCH (21:41)
--- NOTE | 2019-05-07 21:49 | EKG REPORT ---
SEVERITY:- NORMAL ECG - SINUS RHYTHM : Confirmed by: Maddy Salazar MD 07-May-2019 21:48:31
[2019-05-07] MEDS ORDERED: CETIRIZINE 10 MG TABLET PO SCH (22:00)
--- NOTE | 2019-05-08 09:55 | PDOC DISCHARGE SUMMARY ---
Impression - Admit/DC Date/PCP Admission Date/Primary Care Provider: 05/06/19 17:17 MAICOL RYAN MD Discharge Date: 05/08/19 - Assessment Summary: 1.chest pain Patient came to the emergency room with complaints of chest pain 10 x 10 initially eased off to 8/10 as per the patient after giving nitroglycerin in the emergency room. 2 troponins are came back negative. EKGs are nonspecific. Plan to admit her to [facility] as observation patient to continue with trending troponins. To do the stress test tomorrow. Patient is on Plavix and atorvastatin at home dose of renewed. Started on aspirin 325 mg p.o. daily and started on Lovenox 40 mg subcu daily. GI prophylaxis initiated. Started on morphine 2 mg IV every 4 PRN for chest pains. Placed on oxygen 2 L nasal cannula. Lipid panel is requested and the hemoglobin A1c was requested. 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 Hypokalemia may be secondary to medications. To give potassium supplementations and recheck EKG this evening and recheck the labs tomorrow. 3.hypertension Latest blood pressure is 147/83. With pulse rate of 72. Plan to check blood pressure every shift. 4.History of CVA Patient is given the history of CVA in December this year she was admitted to [facility] at that time MRI of the brain was negative at that time as per the patient. 05/07/2019 Chest pain-no further bouts of chest pain at this time. Serial troponins negative. Patient did have Cardiolite stress test this a.m. awaiting results. Will make change plan of care based on findings. Hypokalemia-potassium 4.8 today. Will follow with daily BMPs Hypertension-stable continue to follow History of CVA-stable, monitor. - Additional Information Resuscitation Status: Full Code Discharge Activity: Activity As Tolerated Referrals: MAICOL RYAN MD [Primary Care Provider] - 05/14/19 1:30 am Home Medications: Multivitamin [Multivitamins] 1 each PO DAILY 10/01/11 Fluticasone Propionate [Flonase Nasal Rice 50 Mcg/Rice 16 gm] 2 spray NASL DAILY 02/07/18 Fluticasone Propionate [Flovent Hfa 110 Mcg Inhalation Aerosol 12 gm] 2 puff IH Q12 02/07/18 Telmisartan/Hydrochlorothiazid [Telmisartan-Hctz 40-12.5 mg Tb] 1 each PO DAILY 03/27/18 Metformin HCl [Glucophage 500 mg Tablet] 500 mg PO BID #60 tablet 12/25/18 Atorvastatin Calcium [Lipitor 80 mg Tablet] 80 mg PO DAILY 05/06/19 Carboxymethylcellulose Sodium [Refresh Tears] 1 drop OU Q2HWA 05/06/19 Cetirizine HCl [Zyrtec 10 mg Tablet] 10 mg PO QHS 05/06/19 Montelukast Sodium [Singulair 10 mg Tablet] 10 mg PO QPM 05/06/19 Jones-3 Fatty Acids/Fish Oil [Fish Oil 1,000 mg Capsule] 1,000 mg PO DAILY 05/06/19 Potassium Chloride 10 meq PO DAILY 05/06/19 Albuterol Sulfate [Proventil Hfa] 1 puff IH Q6HP PRN 05/07/19 Cholecalciferol (Vitamin D3) [Vitamin D3 1000 Unit Tablet] 1,000 unit PO DAILY 05/07/19 Clopidogrel Bisulfate [Plavix 75 mg Tablet] 75 mg PO DAILY 05/07/19 Epinephrine [Epipen 2-Tommy] 0.3 mg IM ASDIR PRN 05/07/19 Hydrochlorothiazide [Hydrodiuril 25 mg Tablet] 25 mg PO DAILY 05/07/19 Lactobacillus Combination No.4 [Probiotic] 1 each PO DAILY 05/07/19 Ranitidine HCl [Zantac] 150 mg PO BID 05/07/19 Vitamin E 800 unit PO DAILY 05/07/19 History of Present Illiness History of Present Illness: LINDSEY WILLIS is a 74 year old female who presented to the ER with chest pain 10 out of 10 but resolved somewhat after given nitroglycerin Hospital Course Hospital Course: Patient presented to ER with complaints of chest pain 10 out of 10 initially resolved to an 8 out of 10 after nitroglycerin. Serial troponins were all negative patient had a Cardiolite stress test which was negative. After further evaluation patient's pain was reproducible in her left upper shoulder and was c ontributed to costochondritis as patient had recently been coughing and lifting heavy instrumentation. This morning patient's pain has relatively eased off and she is able to use her arm without problems. I will discharge patient home she will follow-up with primary care in 1 week. Patient will take ibuprofen as needed for this costochondral pain. Physical Exam Vital Signs: Temp Pulse Resp BP Pulse Ox 97.7 F 67 14 124/65 99 05/08/19 07:16 05/08/19 07:16 05/08/19 07:16 05/08/19 07:16 05/08/19 07:16 Intake & Output 05/07/19 05/08/19 05/09/19 06:59 06:59 06:59 Intake Total 720 Output Total 200 Balance -200 720 Weight 83.8 kg 88.2 kg General appearance: PRESENT: no acute distress, well-developed, well-nourished Head exam: PRESENT: atraumatic, normocephalic Eye exam: PRESENT: conjunctiva pink, EOMI, PERRLA. ABSENT: scleral icterus Ear exam: PRESENT: normal external ear exam Mouth exam: PRESENT: moist, tongue midline Neck exam: ABSENT: carotid bruit, JVD, lymphadenopathy, thyromegaly Respiratory exam: PRESENT: clear to auscultation derek. ABSENT: rales, rhonchi, wheezes Cardiovascular exam: PRESENT: RRR. ABSENT: diastolic murmur, rubs, systolic murmur Pulses: PRESENT: normal dorsalis pedis pul Vascular exam: PRESENT: normal capillary refill GI/Abdominal exam: PRESENT: normal bowel sounds, soft. ABSENT: distended, guarding, mass, organolmegaly, rebound, tenderness Rectal exam: PRESENT: deferred Extremities exam: PRESENT: full ROM. ABSENT: calf tenderness, clubbing, pedal edema Neurological exam: PRESENT: alert, awake, oriented to person, oriented to place, oriented to time, oriented to situation, CN II-XII grossly intact. ABSENT: motor sensory deficit Psychiatric exam: PRESENT: appropriate affect, normal mood. ABSENT: homicidal ideation, suicidal ideation Skin exam: PRESENT: dry, intact, warm. ABSENT: cyanosis, rash Results Laboratory Results: WBC 6.7 10^3/uL (4.0-10.5) 05/07/19 04:39 RBC 5.17 10^6/uL (3.72-5.28) 05/07/19 04:39 Hgb 10.8 g/dL (12.0-15.5) L 05/07/19 04:39 Hct 33.6 % (36.0-47.0) L 05/07/19 04:39 MCV 65 fl (80-97) L 05/07/19 04:39 MCH 20.9 pg (27.0-33.4) L 05/07/19 04:39 MCHC 32.2 g/dL (32.0-36.0) 05/07/19 04:39 RDW 16.0 % (11.5-14.0) H 05/07/19 04:39 Plt Count 329 10^3/uL (150-450) 05/07/19 04:39 Lymph % (Auto) Not Reportable 05/07/19 04:39 [place] % (Auto) Not Reportable 05/07/19 04:39 Eos % (Auto) Not Reportable 05/07/19 04:39 Baso % (Auto) Not Reportable 05/07/19 04:39 Absolute Neuts (auto) Not Reportable 05/07/19 04:39 Absolute Lymphs (auto) Not Reportable 05/07/19 04:39 Absolute Monos (auto) Not Reportable 05/07/19 04:39 Absolute Eos (auto) Not Reportable 05/07/19 04:39 Absolute Basos (auto) Not Reportable 05/07/19 04:39 Total Counted 100 05/07/19 04:39 Seg Neutrophils % Not Reportable 05/07/19 04:39 Seg Neuts % (Manual) 57 % (42-78) 05/07/19 04:39 Lymphocytes % (Manual) 24 % (13-45) 05/07/19 04:39 Monocytes % (Manual) 13 % (3-13) 05/07/19 04:39 Eosinophils % (Manual) 6 % (0-6) 05/07/19 04:39 Basophils % (Manual) 0 % (0-2) 05/07/19 04:39 Abs Neuts (Manual) 3.8 10^3/uL (1.7-8.2) 05/07/19 04:39 Abs Lymphs (Manual) 1.6 10^3/uL (0.5-4.7) 05/07/19 04:39 Abs Monocytes (Manual) 0.9 10^3/uL (0.1-1.4) 05/07/19 04:39 Absolute Eos (Manual) 0.4 10^3/uL (0.0-0.6) 05/07/19 04:39 Abs Basophils (Manual) 0.0 10^3/uL (0.0-0.2) 05/07/19 04:39 Nucleated RBCs 1 /100 WBC (0) 05/07/19 04:39 Platelet Comment ADEQUATE 05/07/19 04:39 Microcytosis 3+ 05/07/19 04:39 Ovalocytes 2+ 05/07/19 04:39 PT 13.5 SEC (11.4-15.4) 05/06/19 14:32 INR 1.03 05/06/19 14:32 APTT 39.6 SEC (23.5-35.8) H 05/06/19 14:32 Sodium 141.3 mmol/L (137-145) 05/07/19 04:39 Potassium 4.3 mmol/L (3.6-5.0) D 05/07/19 04:39 Chloride 104 mmol/L (98-107) 05/07/19 04:39 Carbon Dioxide 30 mmol/L (22-30) 05/07/19 04:39 Anion Gap 7 (5-19) 05/07/19 04:39 BUN 15 mg/dL (7-20) 05/07/19 04:39 Creatinine 0.70 mg/dL (0.52-1.25) 05/07/19 04:39 Est GFR ( Amer) > 60 (>60) 05/07/19 04:39 Est GFR (MDRD) Non-Af > 60 (>60) 05/07/19 04:39 Glucose 100 mg/dL (75-110) 05/07/19 04:39 POC Glucose 110 mg/dL (70-110) 05/08/19 07:19 Hemoglobin A1c % 5.8 % (4.7-6.0) 05/07/19 04:39 Calcium 10.2 mg/dL (8.4-10.2) 05/07/19 04:39 Magnesium 1.9 mg/dL (1.6-2.3) 05/07/19 04:39 Total Bilirubin 0.6 mg/dL (0.2-1.3) 05/07/19 04:39 Direct Bilirubin 0.1 mg/dL (0.0-0.4) 05/07/19 04:39 Neonat Total Bilirubin Not Reportable 05/07/19 04:39 Neonat Direct Bilirubin Not Reportable 05/07/19 04:39 Neonat Indirect Bili Not Reportable 05/07/19 04:39 AST 32 U/L (14-36) 05/07/19 04:39 ALT 28 U/L (<35) 05/07/19 04:39 Alkaline Phosphatase 107 U/L (38-126) 05/07/19 04:39 Creatine Kinase 41 U/L (30-135) 05/07/19 04:39 CK-MB (CK-2) < 0.22 ng/mL (<4.55) 05/07/19 04:39 Troponin I < 0.012 ng/mL 05/07/19 04:39 NT-Pro-B Natriuret Pep 82 pg/mL (5-900) 05/07/19 04:39 Total Protein 6.3 g/dL (6.3-8.2) 05/07/19 04:39 Albumin 3.7 g/dL (3.5-5.0) 05/07/19 04:39 Triglycerides 100 mg/dL (<150) 05/07/19 04:39 Cholesterol 97.60 mg/dL (0-200) 05/07/19 04:39 LDL Cholesterol Direct 42 mg/dL (<100) 05/07/19 04:39 VLDL Cholesterol 20.0 mg/dL (10-31) 05/07/19 04:39 HDL Cholesterol 38 mg/dL (>40) L 05/07/19 04:39 05/06/19 05/06/19 05/06/19 14:32 16:22 22:19 CK-MB (CK-2) 0.28 < 0.22 Troponin I < 0.012 < 0.012 < 0.012 NT-Pro-B Natriuret Pep 05/07/19 04:39 CK-MB (CK-2) < 0.22 Troponin I < 0.012 NT-Pro-B Natriuret Pep 82 Impressions: Chest X-Ray 05/06/19 14:09 IMPRESSION: NO ACUTE RADIOGRAPHIC FINDING IN THE CHEST. Shoulder X-Ray 05/06/19 14:09 IMPRESSION: NEGATIVE STUDY OF THE LEFT SHOULDER. NO EXPLANATION FOR PAIN. Plan Time Spent: Greater than 30 Minutes Stroke Is this a Stroke Patient?: No Acute Heart Failure - Is this a Heart Failure Patient?: No
[2019-05-08] MEDS ORDERED: HYDROCHLOROTHIAZIDE 12.5 MG TABLET PO SCH (10:00)
[2019-05-08] MEDS ORDERED: ATORVASTATIN CALCIUM 80 MG TABLET PO SCH (10:00)
[2019-05-08] MEDS ORDERED: HYDROCHLOROTHIAZIDE 25 MG TABLET PO SCH (10:00)
[2019-05-08] MEDS ORDERED: FLUTICASONE NASAL SPRAY 50 MCG/SPRY 120 SPRAY/16 GM NASL SCH (10:00)
[2019-05-08] MEDS ORDERED: (PENDING PHARMACY ID) (Telmisartan/Hydrochlorothiazid [Telmisartan-Hctz 40-12.5 Mg Tb] 1 E PO SCH (10:00)
[2019-05-08] MEDS ORDERED: LOSARTAN POTASSIUM 50 MG TABLET PO SCH (10:00)
[2019-05-08] MEDS ORDERED: CLOPIDOGREL BISULFATE 75 MG TABLET PO SCH (10:00)
[2019-05-08] MEDS: CLOPIDOGREL BISULFATE 75 MG TABLET PO SCH (10:23)
[2019-05-08] MEDS: ASPIRIN 325 MG TABLET PO SCH (10:23)
[2019-05-08] MEDS: INSULIN LISPRO 100 UNIT/ML 3 ML VIAL SUBCUT SCH (10:23)
[2019-05-08] MEDS: FLUTICASONE PROPIONATE HFA 110 MCG/PUFF 12 GM MDI IH SCH (10:32)
[2019-05-08] MEDS: ENOXAPARIN SODIUM INJ 40 MG/0.4 ML DISP.SYRIN SUBCUT SCH (10:33)
[2019-05-08 11:32] VITALS: BP 140/65
--- NOTE | 2019-05-10 00:04 | DRAGON STRESS TEST REPORT ---
Intravenous Lexiscan Cardiolite stress test using single photon emmision computerized tomography. Date of procedure: Ordering Provider: Dr. Ruiz. Patient's status: In Patient. Indication: Chest pain. Coronary risk factors: Age, diabetes mellitus, hypertension, dyslipidemia, and family history of coronary artery disease. Resting EKG: Sinus Rhythm. Within Normal Limits. Stress EKG: No changes of ischemia. The patient had no chest pain or discomfort, and there were no arrhythmias seen. Reason for termination: Protocol. Conclusions: Normal EKG and hemodynamic response to IV Lexiscan. Nuclear data: At rest the patient was given 12.99 millicuries of technetium 99m sestamibi injected intravenously. As per protocol rest non gated SPECT images were obtained. Subsequently the patient was given intravenous Lexiscan at a dose of 0.4 mg in 5 mL intravenously, followed by flush with normal saline. Subsequently the stress dose of 36.9 millicuries of technetium 99m sestamibi was injected intravenously. As per protocol stress gated images were obtained. Nuclear interpretation: Review of images showed that all segments of the myocardium had normal perfusion at rest, and normal perfusion post stress with IV Lexiscan. All segments of the myocardium had normal motion, contraction, and thickening by gated study. T. I D. ratio was read as abnormal at 1.25. This is not reliable, and visually the T I D ratio is normal. There is no transient ischemic dilatation of the left ventricle. Computer read rest, and stress left ventricular ejection fraction were 66 %, and 65 %, respectively. Conclusion: 1. There is no scintigraphic evidence of Lexiscan induced myocardial ischemia. 2. There is no scintigraphic evidence of myocardial infarction/scar. Recommendations: Aggressive risk factor modification, and treating the underlying co- morbidities. MTDD
== END 2019-05-08 12:18 | disposition home or self-care (01) ==
LOC: ER 13:26 → EH 17:17 → INTOOBSV 17:17 → 3S 19:55
PROVIDERS: ADMIT Internal Medicine; ATTEND Internal Medicine
DX: R07.9 Chest pain, unspecified (principal); E87.6 Hypokalemia; I10 Essential (primary) hypertension; M94.0 Chondrocostal junction syndrome [Tietze]; E11.9 Type 2 diabetes mellitus without complications; J45.909 Unspecified asthma, uncomplicated; K21.9 Gastro-esophageal reflux disease without esophagitis; E66.9 Obesity, unspecified; Z86.73 Personal history of transient ischemic attack (TIA), and cerebral infarction without residual deficits; Z79.899 Other long term (current) drug therapy; Z79.02 Long term (current) use of antithrombotics/antiplatelets; Z90.49 Acquired absence of other specified parts of digestive tract; Z82.49 Family history of ischemic heart disease and other diseases of the circulatory system; Z79.82 Long term (current) use of aspirin; Z79.84 Long term (current) use of oral hypoglycemic drugs; Z23 Encounter for immunization
CPT/HCPCS: 93005 ×2; 99285; 36415 ×2; 82553 ×2; 82962 ×3; 82550 ×2; 83735; 85025 ×2; 85610; 85730; 80053 ×2; 84484 ×2; 83036; 80061; 83880; 93017; 71046; 73030; 78452; 90686; 93010; G0378 ×4; A9500; J2785; A9270 ×10; J2270; J1650 ×2; J3490 ×4; Q9969

== ENCOUNTER → 2019-08-27 | Outpatient (CLI) | payer MEDICARE, OTHER ==
[2019-08-27 08:37] LABS: ABSOLUTE EOSINOPHILS # (AUTO) 0.3 10^3/uL (0.0-0.6); ABSOLUTE LYMPHOCYTES (AUTO) 1.7 10^3/uL (0.5-4.7); ABSOLUTE MONOCYTES (AUTO) 0.3 10^3/uL (0.1-1.4); ABSOLUTE NEUT (AUTO) 2.4 10^3/uL (1.7-8.2); EOSINOPHILS % (AUTO) 5.4 % (0-6); HEMATOCRIT 36.8 % (36.0-47.0); HEMOGLOBIN 11.7 g/dL (12.0-15.5); LYMPHOCYTES % (AUTO) 36.2 % (13-45); MEAN CORPUSCULAR HGB CONC 31.7 g/dL (32.0-36.0); MEAN CORPUSCULAR VOLUME 66 fl (80-97); MONOCYTES % (AUTO) 7.2 % (3-13); PLATELET COUNT 330 10^3/uL (150-450); RED BLOOD COUNT 5.56 10^6/uL (3.72-5.28); RED CELL DISTRIBUTION WIDTH 17.3 % (11.5-14.0); SEGMENTED NEUTROPHILS % (AUTO) 50.2 % (42-78); TOTAL CELLS COUNTED % (AUTO) 100 %; WHITE BLOOD COUNT 4.7 10^3/uL (4.0-10.5)
[2019-08-27 09:07] LABS: ALBUMIN 4.1 g/dL (3.5-5.0); ALKALINE PHOSPHATASE 126 U/L (38-126); ASPARTATE AMINO TRANSFERASE 36 U/L (14-36); BILIRUBIN,TOTAL 0.6 mg/dL (0.2-1.3); TOTAL PROTEIN 6.6 g/dL (6.3-8.2)
== END ==
LOC: OD 07:13
PROVIDERS: ATTEND Ophthalmology
DX: H30.93 Unspecified chorioretinal inflammation, bilateral (principal); H35.353 Cystoid macular degeneration, bilateral; H35.372 Puckering of macula, left eye; H35.033 Hypertensive retinopathy, bilateral; H43.813 Vitreous degeneration, bilateral; E11.9 Type 2 diabetes mellitus without complications; Z79.84 Long term (current) use of oral hypoglycemic drugs
CPT/HCPCS: 36415; 80076; 85025

== ENCOUNTER → 2019-09-15 | Outpatient (CLI) | payer MEDICARE, OTHER ==
[2019-09-15 09:48] LABS: ABSOLUTE BASOPHILS # (AUTO) 0.1 10^3/uL (0.0-0.2); ABSOLUTE EOSINOPHILS # (AUTO) 0.4 10^3/uL (0.0-0.6); ABSOLUTE LYMPHOCYTES (AUTO) 1.9 10^3/uL (0.5-4.7); ABSOLUTE MONOCYTES (AUTO) 0.5 10^3/uL (0.1-1.4); ABSOLUTE NEUT (AUTO) 3.2 10^3/uL (1.7-8.2); BASOPHILS % (AUTO) 0.9 % (0-2); EOSINOPHILS % (AUTO) 5.8 % (0-6); HEMATOCRIT 36.6 % (36.0-47.0); HEMOGLOBIN 11.9 g/dL (12.0-15.5); LYMPHOCYTES % (AUTO) 30.9 % (13-45); MEAN CORPUSCULAR HEMOGLOBIN 21.5 pg (27.0-33.4); MEAN CORPUSCULAR HGB CONC 32.6 g/dL (32.0-36.0); MEAN CORPUSCULAR VOLUME 66 fl (80-97); MONOCYTES % (AUTO) 8.9 % (3-13); PLATELET COUNT 357 10^3/uL (150-450); RED BLOOD COUNT 5.54 10^6/uL (3.72-5.28); RED CELL DISTRIBUTION WIDTH 17.5 % (11.5-14.0); SEGMENTED NEUTROPHILS % (AUTO) 53.5 % (42-78); TOTAL CELLS COUNTED % (AUTO) 100 %
[2019-09-15 10:19] LABS: ALBUMIN 4.3 g/dL (3.5-5.0); ALKALINE PHOSPHATASE 130 U/L (38-126); ASPARTATE AMINO TRANSFERASE 34 U/L (14-36); BILIRUBIN,TOTAL 0.5 mg/dL (0.2-1.3); TOTAL PROTEIN 6.6 g/dL (6.3-8.2)
== END ==
LOC: OD 09:05
PROVIDERS: ATTEND Ophthalmology
DX: H30.93 Unspecified chorioretinal inflammation, bilateral (principal); H35.353 Cystoid macular degeneration, bilateral; H35.033 Hypertensive retinopathy, bilateral; H35.372 Puckering of macula, left eye; H43.813 Vitreous degeneration, bilateral; E11.9 Type 2 diabetes mellitus without complications; Z79.84 Long term (current) use of oral hypoglycemic drugs
CPT/HCPCS: 36415; 80076; 85025

== ENCOUNTER → 2020-06-06 | Outpatient (CLI) | payer MEDICARE, OTHER ==
[2020-06-06 15:48] LABS: ABSOLUTE BASOPHILS # (AUTO) 0.1 10^3/uL (0.0-0.2); ABSOLUTE EOSINOPHILS # (AUTO) 0.3 10^3/uL (0.0-0.6); ABSOLUTE LYMPHOCYTES (AUTO) 2.9 10^3/uL (0.5-4.7); ABSOLUTE MONOCYTES (AUTO) 0.6 10^3/uL (0.1-1.4); ABSOLUTE NEUT (AUTO) 2.5 10^3/uL (1.7-8.2); BASOPHILS % (AUTO) 0.9 % (0-2); EOSINOPHILS % (AUTO) 4.2 % (0-6); HEMATOCRIT 35.6 % (36.0-47.0); HEMOGLOBIN 11.7 g/dL (12.0-15.5); LYMPHOCYTES % (AUTO) 46.1 % (13-45); MEAN CORPUSCULAR HEMOGLOBIN 21.7 pg (27.0-33.4); MEAN CORPUSCULAR HGB CONC 32.9 g/dL (32.0-36.0); MEAN CORPUSCULAR VOLUME 66 fl (80-97); PLATELET COUNT 305 10^3/uL (150-450); SEGMENTED NEUTROPHILS % (AUTO) 39.8 % (42-78); TOTAL CELLS COUNTED % (AUTO) 100 %; WHITE BLOOD COUNT 6.3 10^3/uL (4.0-10.5)
[2020-06-06 16:11] LABS: ALBUMIN 4.4 g/dL (3.5-5.0); ALKALINE PHOSPHATASE 128 U/L (38-126); ASPARTATE AMINO TRANSFERASE 35 U/L (14-36); BILIRUBIN,DIRECT 0.1 mg/dL (0.0-0.4); BILIRUBIN,TOTAL 0.6 mg/dL (0.2-1.3); TOTAL PROTEIN 6.7 g/dL (6.3-8.2)
== END ==
LOC: OD 15:09
PROVIDERS: ATTEND Ophthalmology
DX: H30.91 Unspecified chorioretinal inflammation, right eye (principal); H35.351 Cystoid macular degeneration, right eye; H35.372 Puckering of macula, left eye; H40.051 Ocular hypertension, right eye; H35.033 Hypertensive retinopathy, bilateral; H43.813 Vitreous degeneration, bilateral; E11.9 Type 2 diabetes mellitus without complications; Z79.84 Long term (current) use of oral hypoglycemic drugs
CPT/HCPCS: 36415; 80076; 85025